=== PATIENT | female | born 1950 | race Caucasian/White ===

== ENCOUNTER 2019-08-13 02:00 | Day surgery (SDC) | payer MEDICARE, OTHER, SELFPAY ==
[2019-08-07 10:43] VITALS: BMI 31.0
--- NOTE | 2019-08-13 10:12 | WPDANESEPPF ---
Anes - Initial Pre Proc Eval Procedure: Operation Date: 08/13/19 14:00 Proposed Procedures p Screening Colonoscopy - Jam Morales MD Date/Time: 08/13/19 10:12 Surgeon: Jam Morales MD Pre Op Diagnosis: Neoplasm Screening Patient Data Age: 69 Gender: F Height: 5 ft 4 in Weight: 82 kg Allergies Allergy/AdvReac Type Severity Reaction Status Date / Time Sulfa (Sulfonamide Allergy Intermediate Rash Verified 08/07/19 10:55 Antibiotics) lisinopril AdvReac Intermediate Cough Verified 08/07/19 10:55 Home Medications Medication Instructions Recorded Confirmed Type calcium carb 300 mg-D3 800 1 tablet PO DAILY 05/27/19 08/07/19 History unit-mag ox 25 mg-[employer] 0.5 mg-siomara-Zn tablet irbesartan 300 mg tablet 300 mg PO DAILY 05/27/19 08/07/19 History multivit with 1 tablet PO DAILY 05/27/19 08/07/19 History dlcvevvb-ghkm-RX-lutein 8 mg iron-400 mcg-300 mcg tablet amlodipine 10 mg tablet 10 mg PO DAILY #90 tablet 07/24/19 08/07/19 Rx cyclosporine [Restasis] OPHTHALMIC (EYE) 08/07/19 History peg 3350-electrolytes 236 240 ml PO Q10M #4000 ml 08/11/19 Rx gram-22.74 gram-6.74 gram-5.86 gram solution Patient hx anesthesia problems: none Family hx anesthesia problems: none PMFSH Past Medical History Medical History Cataract Essential (primary) hypertension IFG (impaired fasting glucose) Rosacea Surgical History Surgical History H/O melanoma excision Social History Social History Gender identity (if verbalized by the patient): Female Anes - Eval Final PreProcedure Day of Procedure 08/13/19 10:12 Patient weight: obese Heart: regular rate and rhythm Lungs: clear to auscultation Airway: Mallampati scale class II Neurological: alert and oriented Last oral intake: >/= 8 hours ASA classification: II Emergent: no Anesthetic plan: proceed Anesthesia type and monitoring: general GIVS and standard monitoring Informed Consent: The patient's anesthetic plan and its attendant risks and benefits were discussed with the patient/family/POA. Questions were solicited and answers provided to the satisfaction of the patient/family/POA.
[2019-08-13 10:16] VITALS: BP 117/74; PULSE 73; RESP 16; TEMP 36.8; O2SAT 96
[2019-08-13] MEDS: LACTATED RINGERS 1,000 ML 150 ML IV CONT (10:39)
--- NOTE | 2019-08-13 11:21 | PM.HPGS ---
History of Present Illness History of Present Illness Consent: Risks, benefits, and alternatives have been discussed and questions answered. Patient agrees to proceed with procedure. Chief complaint: Neoplasm Screening Narrative: Meeta Blackmon is a 69 year old female with history of polyps, she is due to have another colonoscopy Review of Systems Constitutional: Constitutional: Denies headache(s) and Denies weakness Eyes: Eyes: Denies blurry vision ENT: Reports Normal hearing present, Denies headache(s) and Denies neck pain Cardiovascular: Cardiovascular: Denies chest pain and Denies dyspnea Respiratory: Respiratory: Denies dyspnea Gastrointestinal: Gastrointestinal: Reports no additional gastrointestinal complaints Genitourinary: Genitourinary: Denies dysuria Musculoskeletal: Musculoskeletal: Denies neck pain Integumentary/Breasts: Skin/Breast: Denies dry skin Neurologic: Reports Normal hearing present, Denies headache(s) and Denies weakness Psychiatric: Psychiatric: Denies anxiety Endocrine: Endocrine: Denies change in body appearance Hematologic/Lymphatic: Hematologic/Lymphatic: Denies easy bleeding Allergic/Immunologic: Allergic/Immunologic: Denies urticaria PMFSH Past Medical History Medical History Cataract Essential (primary) hypertension IFG (impaired fasting glucose) Rosacea Surgical History Surgical History H/O melanoma excision Social History Social History Gender identity (if verbalized by the patient): Female Meds Home Medications and Allergies Home Medications Medication Instructions Recorded Confirmed Type calcium carb 300 mg-D3 800 1 tablet PO DAILY 05/27/19 08/07/19 History unit-mag ox 25 mg-cops 0.5 mg-siomara-Zn tablet irbesartan 300 mg tablet 300 mg PO DAILY 05/27/19 08/07/19 History multivit with 1 tablet PO DAILY 05/27/19 08/07/19 History fzepznlz-djqq-NL-lutein 8 mg iron-400 mcg-300 mcg tablet amlodipine 10 mg tablet 10 mg PO DAILY #90 tablet 07/24/19 08/07/19 Rx cyclosporine [Restasis] OPHTHALMIC (EYE) 08/07/19 History peg 3350-electrolytes 236 240 ml PO Q10M #4000 ml 08/11/19 Rx gram-22.74 gram-6.74 gram-5.86 gram solution Allergies Allergy/AdvReac Type Severity Reaction Status Date / Time Sulfa (Sulfonamide Allergy Intermediate Rash Verified 08/13/19 10:15 Antibiotics) lisinopril AdvReac Intermediate Cough Verified 08/07/19 10:55 Vital Signs Vital Signs - 24 hr 08/13/19 10:16 Temperature 98.3 F Pulse Rate 73 Respiratory Rate 16 Blood Pressure 117/74 Pulse Oximetry 96 Exam Const: General: comfortable and no acute distress HENMT: General nose exam: Normal nares present Eyes: General: appearance normal, both eyes and all related structures Neck: Neck: no JVD Resp: Auscultation: clear to auscultation bilaterally Cardio: Rate: regular rate Rhythm: regular rhythm GI: Inspection: non-distended GI Palp: Yes Soft to palpation Skin: General skin exam: normal color Neuro: General: gait normal Speech: normal speech Extrem: General: normal to inspection Psych: Mental Status: mental status grossly normal Assessment and Plan Assessment and plan (1) Colon polyp: Code(s): K63.5 - Polyp of colon Status: Acute Assessment and Plan: will proceed with colonoscopy (2) Essential (primary) hypertension: Code(s): I10 - Essential (primary) hypertension Status: Chronic
[2019-08-13 11:45] VITALS: BP 92/54; PULSE 71; RESP 20; O2SAT 98
[2019-08-13 11:55] VITALS: BP 94/54; PULSE 67; RESP 17; O2SAT 98
[2019-08-13 12:05] VITALS: BP 98/59; PULSE 66; RESP 13; O2SAT 100
== END 2019-08-13 12:18 | disposition home or self-care (01) ==
PROVIDERS: PCP Family Medicine; Visit Provider Internal Medicine Gastroenterology
PROC: 0DJD8ZZ Inspection of Lower Intestinal Tract, Via Natural or Artificial Opening Endoscopic (ICD-10-PCS; CPT 45378; principal; 2019-08-13 14:00)
DX: Z12.11 Encounter for screening for malignant neoplasm of colon (principal); K57.30 Diverticulosis of large intestine without perforation or abscess without bleeding; K64.8 Other hemorrhoids; Z86.010 Personal history of colon polyps; I10 Essential (primary) hypertension; H26.9 Unspecified cataract; E66.9 Obesity, unspecified; Z68.31 Body mass index [BMI] 31.0-31.9, adult
CPT/HCPCS: G0105; J2704; J7120

== ENCOUNTER 2020-07-03 08:04 | Outpatient (CLI) | payer MEDICARE, OTHER, SELFPAY ==
--- NOTE | ~2020-07-03 | MM_ITS ---
EXAMINATION: MM screening romeo BI w shanti HISTORY: Screening mammogram TECHNIQUE: Craniocaudal and mediolateral oblique 3-D tomosynthesis images were obtained and synthetic 2-D images were generated. CAD analysis was submitted and interpreted. COMPARISON: 06/03/2019, 03/2018 bilateral digital screening mammogram examinations BREAST PARENCHYMAL COMPOSITION: There are scattered areas of fibroglandular density. FINDINGS: There is no evidence of suspicious mass, calcification, or architectural distortion to sugg est malignancy in either breast. There has been no suspicious interval change. IMPRESSION: 1. No mammographic evidence of malignancy. 2. Recommend routine screening mammography in one year. BI-RADS Category 1: Negative Reviewed, dictated and finalized at location A. ORNE ELECTRONICS ANALYST
== END 2020-07-03 08:05 | disposition home or self-care (01) ==
LOC: ANHIMG 08:11
PROVIDERS: PCP Family Medicine; Visit Provider Obstetrics & Gynecology
DX: Z12.31 Encounter for screening mammogram for malignant neoplasm of breast (principal)
CPT/HCPCS: 77063; 77067

== ENCOUNTER 2021-03-08 08:23 | Outpatient (CLI) | payer MEDICARE, OTHER, SELFPAY ==
--- NOTE | ~2021-03-08 | XR_ITS ---
EXAMINATION: XR chest 2V EXAM DATE: 03/08/2021 09:37 INDICATION: Right forearm melanoma. TECHNIQUE: Frontal and lateral projections of the chest obtained and reviewed. There is no prior christiana dy for comparison. FINDINGS: Large hiatal hernia. Cardiomediastinal silhouette is normal. No confluent consolidation, pn eumothorax or pleural effusion suspected. There are no osseous abnormalities identified. Calcified ri ght paratracheal granulomas. IMPRESSION: 1. Large hiatal hernia. 2. Clear lungs. Reviewed, dictated and finalized at location A.
[2021-03-08 09:45] LABS: Basophils Absolute Auto 0.1 K/mm3 (0.0-0.1); Basophils Percent Auto 1.1 % (0.2-1.2); Eosinophils Absolute Auto 0.3 K/mm3 (0-0.3); Hematocrit 44.9 % (37.0-47.0); Hemoglobin 14.4 g/dL (12.0-15.0); Immature Granulocyte Absolute 0.03 K/mm3 (0.00-0.031); Immature Granulocyte Percent A 0.7 % (0-0.5); Lymphocytes Absolute Auto 1.64 K/mm3 (0.9-3.2); Lymphocytes Percent Auto 36.9 % (18.3-44.2); Mean Corpuscular HGB Conc 32.1 g/dl (32-36); Mean Corpuscular Hemoglobin 25.3 pg (26-34); Mean Corpuscular Volume 78.8 fl (80-100); Mean Platelet Volume 10.9 fl (7.4-10.4); Monocytes Absolute Auto 0.6 K/mm3 (0.1-0.6); Monocytes Percent Auto 13.3 % (2.6-8.5); Neutrophils Absolute Auto 1.8 K/mm3 (1.3-6.7); Platelet Count Result 179 k/mm3 (150-375); Red Cell Distribution Width 14.8 % (11.5-14.5); White Blood Count 4.5 K/mm3 (4.5-10.0)
[2021-03-08 11:06] LABS: Alanine Aminotransferase 19 U/L (4-35); Albumin Level 4.5 g/dL (3.5-5.1); Alkaline Phosphatase 71 U/L (38-126); Anion Gap 12 mmol/L (8-16); Aspartate Amino Transferase 28 U/L (14-36); Bilirubin,Total 0.6 mg/dL (0.2-1.3); Blood Urea Nitrogen 14 mg/dL (7-17); Calcium 9.5 mg/dL (8.4-10.2); Carbon Dioxide 24 mmol/L (22-30); Chloride 98 mmol/L (98-107); Cholesterol 176 mg/dL (0-200); Estimated Glomerular Filt Rate > 60; Glucose 93 mg/dL (65-110); HDL Direct 82 mg/dL; Potassium 3.8 mmol/L (3.4-5.0); Sodium 134 mmol/L (137-145); Triglycerides 54 mg/dL (<150)
[2021-03-08 11:13] LABS: Hemoglobin A1C 5.5 % (<5.7)
[2021-03-08 11:17] LABS: LDL Cholesterol Direct 72 mg/dL
== END 2021-03-08 08:24 | disposition home or self-care (01) ==
PROVIDERS: PCP Family Medicine; Referring Provider Surgery; Visit Provider Nurse Practitioner Family
DX: E78.2 Mixed hyperlipidemia (principal); R73.01 Impaired fasting glucose; I10 Essential (primary) hypertension; K44.9 Diaphragmatic hernia without obstruction or gangrene; C43.61 Malignant melanoma of right upper limb, including shoulder
CPT/HCPCS: 36415; 71046; 80053; 80061; 83036; 84443; 85025

== ENCOUNTER 2021-04-11 14:22 | Outpatient (CLI) | payer MEDICARE, OTHER, SELFPAY ==
[2021-04-11 15:24] LABS: Alanine Aminotransferase 20 U/L (4-35); Albumin Level 4.6 g/dL (3.5-5.1); Alkaline Phosphatase 76 U/L (38-126); Anion Gap 8 mmol/L (8-16); Aspartate Amino Transferase 24 U/L (14-36); Bilirubin,Total 0.6 mg/dL (0.2-1.3); Blood Urea Nitrogen 16 mg/dL (7-17); Calcium 9.4 mg/dL (8.4-10.2); Carbon Dioxide 27 mmol/L (22-30); Chloride 101 mmol/L (98-107); Estimated Glomerular Filt Rate > 60; Glucose 91 mg/dL (65-110); Lactate Dehydrogenase 366 U/L (313-618); Potassium 4.2 mmol/L (3.4-5.0); Sodium 136 mmol/L (137-145)
[2021-04-11 15:26] LABS: Basophils Percent Auto 0.7 % (0.2-1.2); Eosinophils Absolute Auto 0.3 K/mm3 (0-0.3); Eosinophils Percent Auto 5.6 % (0-4.4); Hematocrit 42.7 % (37.0-47.0); Immature Granulocyte Absolute 0.04 K/mm3 (0.00-0.031); Immature Granulocyte Percent A 0.7 % (0-0.5); Lymphocytes Absolute Auto 1.95 K/mm3 (0.9-3.2); Lymphocytes Percent Auto 36.2 % (18.3-44.2); Mean Corpuscular HGB Conc 32.8 g/dl (32-36); Mean Corpuscular Hemoglobin 26.3 pg (26-34); Mean Corpuscular Volume 80.3 fl (80-100); Mean Platelet Volume 10.4 fl (7.4-10.4); Monocytes Absolute Auto 0.5 K/mm3 (0.1-0.6); Monocytes Percent Auto 9.9 % (2.6-8.5); Neutrophils Absolute Auto 2.5 K/mm3 (1.3-6.7); Neutrophils Percent Auto 46.9 % (45.5-73.1); Platelet Count Result 192 k/mm3 (150-375); Red Blood Count 5.32 M/mm3 (4.2-5.4); Red Cell Distribution Width 15.1 % (11.5-14.5); White Blood Count 5.4 K/mm3 (4.5-10.0)
[2021-04-11 15:53] LABS: Iron 107 ug/dL (37-170)
[2021-04-11 16:02] LABS: Percent Iron Saturation 31 % (20-50)
[2021-04-17 12:43] LABS: Hematocrit 42.4 % (35.0-45.0); Hemoglobin 13.9 g/dL (11.7-15.5); MCV 79.4 fL (80.0-100.0); RDW 15.7 % (11.0-15.0); Red Blood Cell Count 5.34 Mill/uL (3.80-5.10)
== END 2021-04-11 14:23 | disposition home or self-care (01) ==
LOC: ANHLAB 14:29
PROVIDERS: PCP Family Medicine; Visit Provider Internal Medicine Hematology & Oncology
DX: R59.1 Generalized enlarged lymph nodes (principal); R71.8 Other abnormality of red blood cells
CPT/HCPCS: 36415; 80053; 82728; 83021; 83540; 83550; 83615; 85025; 88184; 88185

== ENCOUNTER 2021-05-09 08:06 | Outpatient (CLI) | payer MEDICARE, OTHER, SELFPAY ==
--- NOTE | ~2021-05-09 | CT_ITS ---
EXAMINATION: CT soft tissue neck chest w EXAM DATE: 05/09/2021 09:06 INDICATION: Lymphadenopathy Lab Work , Yeyo Neck Swelling Per doctor. History of right forearm melanom a. TECHNIQUE: Spiral CT of the neck and chest was performed following intravenous injection of 75 mL Omn ipaque 350. Axial, coronal and sagittal images of the neck were reviewed. Axial, coronal and sagitt al images of the chest were reviewed. Coronal maximum intensity pixel images of chest reviewed. The dose-length product (DLP) for this examination was 535.10 mGy-cm. The exposure was tailored accordi ng to patient size (auto mA exposure control), and iterative reconstruction (ASIR) was used as additi onal dose reduction technique. There is no prior study for comparison. FINDINGS: NECK: The thyroid gland is unremarkable. The submandibular and parotid glands are symmetric. Ther e is no cervical lymphadenopathy. There are no masses identified. The airway is unremarkable. P arapharyngeal and pre-glottic fat planes are preserved. Mild left carotid bulb arterial sclerosis w ithout stenosis. There is right neck chest junction pathologically enlarged lymph node which measures 1.2 x 1.7 cm. This is the largest cervical lymph node identified. The orbits are unremarkable. Vi sualized sinuses and mastoid air cells are well aerated. There is cervical spondylosis. CHEST: There are no pleural or pericardial effusions. Tracheobronchial tree is patent. There ar e several enlarged right axillary lymph nodes, measuring up to 1.0 x 1.0 x 2.0 cm. There is no medias tinal or hilar lymphadenopathy. No central pulmonary emboli. There is large gastroesophageal hiatal h ernia, stomach is essentially intrathoracic in location, as well as the splenic flexure of the colon. There is bilateral lower lobe adjacent subsegmental compressive atelectasis. There is no pneumothora x. Mild cardiomegaly. Mildly dilated aortic root at 4.0 cm. No evidence of coronary arterial calci fication. There is thoracic spondylosis without osteoblastic or osteolytic lesions identified. IMPRESSION: 1. Pathologically enlarged lymph nodes in the right axilla, right supraclavicular/lower cervical reg ions. Differential diagnosis includes metastatic disease, lymphoma, granulomatous process. The right lower cervical/supraclavicular node location would be amenable to percutaneous biopsy. 2. Large hernia containing stomach and splenic flexure of colon. 3. Basilar segmental compressive atelectasis. Reviewed, dictated and finalized at location B. IMPRESSION: 1. Pathologically enlarged lymph nodes in the right axilla, right supraclavicu lar/lower cervical regions. Differential diagnosis includes metastatic disease, lymphoma, granulomatous process. The right lower cervical/supraclavicular node location would be amenable to percutaneous biopsy. 2. Large hernia containing stomach and splenic flexure of colon. 3. Basilar segmental compressive atelectasis.
== END 2021-05-09 08:07 | disposition home or self-care (01) ==
LOC: ANHIMG 08:22
PROVIDERS: PCP Family Medicine; Visit Provider Internal Medicine Hematology & Oncology
DX: R59.1 Generalized enlarged lymph nodes (principal); K44.9 Diaphragmatic hernia without obstruction or gangrene; R91.8 Other nonspecific abnormal finding of lung field
CPT/HCPCS: 70491; 71260; Q9967

== ENCOUNTER 2021-06-21 11:25 | Outpatient (CLI) | payer MEDICARE, OTHER, SELFPAY ==
[2021-06-16 10:26] VITALS: BMI 23.9
--- NOTE | 2021-06-16 10:58 | PC.NURSE ---
Report to the Outpatient Waiting Room, entrance under the green pavilion located off [facility], at time 1130 on date 06/21/21. OR Time: 1330. - You and your visitor will be asked a series of questions to screen for COVID 19 for your protection. - A mask is required within the hospital. - Only one visitor is allowed at this time. Patient visitors will be guided where to wait when not with patient. Preoperative COVID Testing Requirements: No COVID Test needed if: (proof is required; if not received patient will have Rapid Test prior to entry) - Patient has received COVID Vaccine at least 14 days prior to procedure date or - Patient has positive COVID test result within last 90 days of surgery date. COVID Test needed if above criteria is not met If not COVID vaccinated a COVID test must be conducted within 72 hours of surgery and patient is asked to isolate self from time of testing until procedure. You will go to the [facility] for your COVID testing. The [facility] is located at the corner of [address] [facility]. You will only be called if COVID results are positive and your surgeon may reschedule your elective surgery date. - No food OR DRINK FOR 6 HOURS PRIOR TO PROCEDURE Take the following medications with a SIP of water the morning of surgery: PRIOR TO 0730 Medications to discontinue per physician: N/A Date to take last dose: N/A Please no make-up, nail sami, hairspray, perfume, deodorant, or body powder the day of surgery. No jewelry (including any body piercings) or valuables the day of surgery, leave them at home. Please take a shower or bath the night before, or the morning of, surgery with an antibacterial soap. Wear comfortable, loose fitting clothing. Children are encouraged to wear pajamas. - Jewelry must be removed prior to entering the operating room. Rings and piercings that are not removed may be cut off. - The hospital will not accept responsibility for valuables. - Please leave all valuables, including medications, at home the day of surgery. If you are going home after surgery, a licensed charter coach driver must drive you home. - NO public transportation without another adult. - We recommend that an adult stay with you for 24 hours following discharge. - We also recommend that you do not drive, make important decision, drink alcoholic beverages, or take any drugs that were not prescribed by your health care provider for at least 24 hours after your discharge time. Follow any additional instructions given to you from your surgeon. Telephone instructions given to GENTRY DOMINIQUE and asked if any additional questions and then verbalized understanding. Patient advised to call surgeon office or pre surgery nurse liaison [phone] if any additional questions.
--- NOTE | ~2021-06-21 | US_ITS ---
EXAMINATION: US biopsy lymph node DATE: 06/21/2021 14:06 INDICATION: Right supraclavicular lymphadenopathy. TECHNIQUE: The procedure including the risks, benefits, and alternatives was discussed with the patie nt. Risks discussed included bleeding and infection. The patient understood the risks and agreed to p roceed. The skin overlying the right supraclavicular region was prepped and draped in usual sterile f ashion. Anesthetic was administered with 1% lidocaine subcutaneously. An 18 gauge core biopsy needl e was then used to obtain 6 core biopsy specimens under continuous sonographic guidance. The entry si te was cleaned and dressed. There were no immediate complications. FINDINGS: Ultrasound images demonstrate the needle in a 1.9 x 1.3 cm right supraclavicular lymph node . IMPRESSION: 1. Ultrasound-guided core needle biopsy of a right supraclavicular lymph node. Reviewed, dictated and finalized at location A. NISTRATIVE SUPPORT CLERK
[2021-06-21 12:15] VITALS: BP 151/80; PULSE 71; RESP 16; TEMP 36.9; O2SAT 98
[2021-06-21 12:19] LABS: Mean Platelet Volume 10.1 fl (7.4-10.4); Platelet Count Result 186 k/mm3 (150-375)
[2021-06-21 12:28] LABS: INR 1.1; Prothrombin Time 13.7 Seconds (11.1-14.7)
== END 2021-06-21 11:26 | disposition home or self-care (01) ==
PROVIDERS: PCP Family Medicine; Visit Provider Radiology Diagnostic Radiology
PROC: (CPT 76942; principal; 2021-06-21 13:30)
DX: R59.0 Localized enlarged lymph nodes (principal)
CPT/HCPCS: 36415; 38505; 76942; 85049; 85610; 88184; 88185; 88305

== ENCOUNTER 2021-07-14 09:08 | Outpatient (CLI) | payer MEDICARE, OTHER, SELFPAY ==
--- NOTE | ~2021-07-14 | MM_ITS ---
EXAMINATION: MM screening romeo BI w shanti HISTORY: Screening TECHNIQUE: Craniocaudal and mediolateral oblique 3-D tomosynthesis images were obtained and synthetic 2-D images were generated. CAD analysis was submitted and interpreted. COMPARISON: Comparison to multiple prior studies sequentially, with oldest reviewed study dated 10/2017. BREAST PARENCHYMAL COMPOSITION: The breasts are heterogeneously dense, which may obscure small masses . FINDINGS: There is developing subareolar asymmetry of the right breast. Left breast is stable withou t evidence for malignancy. IMPRESSION: 1. Developing right breast asymmetry. 2. Additional mammographic views and possible breast ultrasound are recommended. BI-RADS Category 0: Incomplete: Needs additional imaging evaluation. Reviewed, dictated and finalized at location A. TRICAL LINESWORKER IMPRESSION: 1. Developing right breast asymmetry. 2. Additional mammographic views and possible breast ultrasound are recommended . BI-RADS Category 0: Incomplete: Needs additional imaging evaluation.
== END 2021-07-14 09:09 | disposition home or self-care (01) ==
PROVIDERS: PCP Family Medicine; Visit Provider Obstetrics & Gynecology
DX: Z12.31 Encounter for screening mammogram for malignant neoplasm of breast (principal); R92.8 Other abnormal and inconclusive findings on diagnostic imaging of breast
CPT/HCPCS: 77063; 77067

== ENCOUNTER 2021-08-04 12:44 | Outpatient (CLI) | payer MEDICARE, OTHER, SELFPAY ==
--- NOTE | ~2021-08-04 | MMUS_ITS ---
EXAMINATION: MM diagnostic romeo RT w shanti, US breast RT limited HISTORY: Follow-up right breast asymmetry TECHNIQUE: Additional 3-D tomosynthesis images of the right breast were performed and synthetic 2-D i mages were generated. CAD analysis was submitted and interpreted. High resolution Limited right breas t ultrasound was performed. COMPARISON: 07/14/2021 BREAST PARENCHYMAL COMPOSITION: The breasts are heterogenously dense, which may obscure small masses. FINDINGS: MAMMOGRAPHIC FINDINGS: There is focal asymmetry in the the subareolar location of the right breast. No discrete mass or arch itectural distortion. There is no suspicious clustered microcalcifications. ULTRASOUND: Limited right breast ultrasound: Mildly prominent ducts correspond to the asymmetry seen on mammograp hy. No discrete mass is identified. IMPRESSION: 1. No evidence for malignancy in the right breast. 2. Routine yearly screening mammogram and regular clinical breast examination are recommended. BI-RADS Category 1: Negative Reviewed, dictated and finalized at location A. Y STITCHER IMPRESSION: 1. No evidence for malignancy in the right breast. 2. Routine yearly screening mammogram and regular clinical breast examination a re recommended. BI-RADS Category 1: Negative
== END 2021-08-04 12:45 | disposition home or self-care (01) ==
LOC: ANHIMG 12:45
PROVIDERS: PCP Family Medicine; Visit Provider Obstetrics & Gynecology
DX: R92.8 Other abnormal and inconclusive findings on diagnostic imaging of breast (principal)
CPT/HCPCS: 76642; 77061; 77065; G0279

== ENCOUNTER 2021-09-06 08:33 | Outpatient (CLI) | payer MEDICARE, OTHER, SELFPAY ==
[2021-09-06 09:25] LABS: Basophils Absolute Auto 0.1 K/mm3 (0.0-0.1); Basophils Percent Auto 1.2 % (0.2-1.2); Eosinophils Absolute Auto 0.5 K/mm3 (0-0.3); Eosinophils Percent Auto 11.7 % (0-4.4); Hematocrit 43.6 % (37.0-47.0); Hemoglobin 14.4 g/dL (12.0-15.0); Immature Granulocyte Absolute 0.02 K/mm3 (0.00-0.031); Immature Granulocyte Percent A 0.5 % (0-0.5); Lymphocytes Absolute Auto 1.96 K/mm3 (0.9-3.2); Mean Corpuscular Hemoglobin 26.5 pg (26-34); Mean Corpuscular Volume 80.1 fl (80-100); Mean Platelet Volume 10.5 fl (7.4-10.4); Monocytes Absolute Auto 0.6 K/mm3 (0.1-0.6); Monocytes Percent Auto 13.8 % (2.6-8.5); Neutrophils Absolute Auto 1.1 K/mm3 (1.3-6.7); Neutrophils Percent Auto 26.8 % (45.5-73.1); Platelet Count Result 167 k/mm3 (150-375); Red Blood Count 5.44 M/mm3 (4.2-5.4); Red Cell Distribution Width 15.2 % (11.5-14.5); White Blood Count 4.3 K/mm3 (4.5-10.0)
[2021-09-06 09:40] LABS: Alanine Aminotransferase 18 U/L (4-35); Albumin Level 4.3 g/dL (3.5-5.1); Alkaline Phosphatase 76 U/L (38-126); Anion Gap 5 mmol/L (8-16); Aspartate Amino Transferase 26 U/L (14-36); Bilirubin,Total 0.7 mg/dL (0.2-1.3); Blood Urea Nitrogen 13 mg/dL (7-17); Calcium 9.4 mg/dL (8.4-10.2); Carbon Dioxide 28 mmol/L (22-30); Chloride 100 mmol/L (98-107); Estimated Glomerular Filt Rate > 60; Glucose 93 mg/dL (65-110); Potassium 3.9 mmol/L (3.4-5.0); Sodium 133 mmol/L (137-145)
== END 2021-09-06 08:34 | disposition home or self-care (01) ==
LOC: ANHLAB 08:35
PROVIDERS: PCP Family Medicine; Visit Provider Nurse Practitioner Family
DX: R71.8 Other abnormality of red blood cells (principal); I10 Essential (primary) hypertension
CPT/HCPCS: 36415; 80053; 85025

== ENCOUNTER 2022-03-08 08:27 | Outpatient (CLI) | payer MEDICARE, OTHER, SELFPAY ==
[2022-03-08 09:16] LABS: Basophils Absolute Auto 0.1 K/mm3 (0.0-0.1); Eosinophils Absolute Auto 0.4 K/mm3 (0-0.3); Eosinophils Percent Auto 8.3 % (0-4.4); Hematocrit 45.3 % (37.0-47.0); Hemoglobin 14.6 g/dL (12.0-15.0); Immature Granulocyte Absolute 0.02 K/mm3 (0.00-0.031); Immature Granulocyte Percent A 0.4 % (0-0.5); Lymphocytes Absolute Auto 1.62 K/mm3 (0.9-3.2); Lymphocytes Percent Auto 33.7 % (18.3-44.2); Mean Corpuscular HGB Conc 32.2 g/dl (32-36); Mean Corpuscular Hemoglobin 25.7 pg (26-34); Mean Corpuscular Volume 79.9 fl (80-100); Mean Platelet Volume 10.5 fl (7.4-10.4); Monocytes Absolute Auto 0.7 K/mm3 (0.1-0.6); Monocytes Percent Auto 14.6 % (2.6-8.5); Platelet Count Result 175 k/mm3 (150-375); Red Blood Count 5.67 M/mm3 (4.2-5.4); Red Cell Distribution Width 15.4 % (11.5-14.5); White Blood Count 4.8 K/mm3 (4.5-10.0)
[2022-03-08 09:38] LABS: Alanine Aminotransferase 24 U/L (6-35); Albumin Level 4.7 g/dL (3.5-5.1); Alkaline Phosphatase 82 U/L (38-126); Anion Gap 9 mmol/L (8-16); Aspartate Amino Transferase 25 U/L (14-36); Bilirubin,Total 0.7 mg/dL (0.2-1.3); Blood Urea Nitrogen 14 mg/dL (7-17); Calcium 9.2 mg/dL (8.4-10.2); Carbon Dioxide 28 mmol/L (22-30); Chloride 97 mmol/L (98-107); Cholesterol 173 mg/dL (0-200); Estimated Glomerular Filt Rate > 60; Glucose 94 mg/dL (65-110); HDL Direct 78 mg/dL; Sodium 134 mmol/L (137-145); Triglycerides 59 mg/dL (<150)
[2022-03-08 09:44] LABS: Appearance Urine Clear (Clear); Bilirubin Urine Negative (Negative); Color Urine Yellow (Yellow); Glucose Urine UA Negative (Negative); Ketones Urine Negative (Negative); Leukocyte Esterase Ur 1+ LEU/UL (NEGATIVE); Nitrate Urine Negative (Negative); Protein Urine Negative (Negative); Specific Grav Ur 1.015 (1.001-1.035); Urobilinogen Urine 0.2 mg/dL (<2.0)
[2022-03-08 09:46] LABS: Add Urine Microscopic? YES; Blood Urine Trace-Intact (Negative)
[2022-03-08 09:49] LABS: LDL Cholesterol Direct 62 mg/dL
[2022-03-08 09:50] LABS: Squamous Epithelial Cell Urine Rare /hpf (Few); WBC Urine 0-3 /hpf (0-3)
[2022-03-08 09:59] LABS: Hemoglobin A1C 5.4 % (<5.7)
[2022-03-08 10:15] LABS: Vitamin D 25 Hydroxy 39.3 ng/mL
== END 2022-03-08 08:28 | disposition home or self-care (01) ==
LOC: ANHLAB 08:31
PROVIDERS: PCP Family Medicine; Visit Provider Nurse Practitioner Family
DX: N39.0 Urinary tract infection, site not specified (principal); E55.9 Vitamin D deficiency, unspecified; I10 Essential (primary) hypertension; R73.01 Impaired fasting glucose; R79.89 Other specified abnormal findings of blood chemistry; E78.2 Mixed hyperlipidemia
CPT/HCPCS: 36415; 80053; 80061; 81001; 82306; 83036; 84443; 85025

== ENCOUNTER 2022-03-19 17:55 | Emergency (ER) | payer MEDICARE, OTHER, SELFPAY ==
[2022-03-19 18:06] VITALS: BP 151/89; PULSE 87; RESP 16; TEMP 37.4; O2SAT 98
--- NOTE | 2022-03-19 18:31 | ED.GENADULT ---
HPI - General Adult General Chief complaint: Skin/Abscess/Foreign Body Stated complaint: wasp sting on left hand Source: patient Mode of arrival: ambulatory Limitations: no limitations History of Present Illness HPI narrative: Patient presents for evaluation of swelling, pain and redness to the left hand and arm since yesterday. She indicates she experienced 2 wasp stings, one to the third digit of the left hand and the other to the left forearm. She states she is allergic to wasp stings and has had similar response in the past. No difficulty breathing or swallowing. She took 2 doses of Benadryl, each 50 mg, yesterday and another dose of 50 mg today. The first dose yesterday seem to help reduce her swelling. She is right-hand dominant. She is not diabetic. No purulence from the affected area. She is under the care of hematology for surveillance of elevated red blood cell count. She indicates she had testing to check for underlying clotting disorders and that testing was negative. No additional complaints or concerns. Related Data Home Medications Medication Instructions Recorded Confirmed calcium carb 300 mg-D3 800 1 tablet PO DAILY 05/27/19 06/16/21 unit-mag ox 25 mg-engraver copperplate 0.5 mg-siomara-Zn tablet (Caltrate + D3 Plus Minerals) multivit with 1 tablet PO DAILY 05/27/19 06/16/21 jmtovllr-epxk-OX-lutein 8 mg iron-400 mcg-300 mcg tablet (Centrum Silver Women) cyclosporine 0.05 % eye drops in a 1 drp ophthalmic (eye) DAILY 08/07/19 06/16/21 dropperette (Restasis) Allergies Allergy/AdvReac Type Severity Reaction Status Date / Time Sulfa (Sulfonamide Allergy Intermediate Rash Verified 03/17/22 09:02 Antibiotics) lisinopril AdvReac Intermediate Cough Verified 03/17/22 09:02 [facility] Past Medical History Medical History Cataract Colon polyp Essential (primary) hypertension IFG (impaired fasting glucose) Melanoma in situ Rosacea Surgical History Surgical History H/O melanoma excision Family History Family History Mother Hypertension Cerebrovascular accident Family history of malignant neoplasm of breast in first degree relative Father Malignant neoplasm of prostate Family history of lung cancer Social History Social History Smoking status: Former smoker Tobacco type: cigarettes Smoking end date: 07/16/81 Additional smoking assessment comments: IN COLLEGE FOR A SHORT PERIOD OF TIME Alcohol intake: current Alcohol use details: 1-2/MONTH Substance use: never Substance use type: does not use Gender identity (if verbalized by the patient): Female Spiritual care concerns: No Exam Narrative: GENERAL: Well-appearing, well-nourished, and in no acute distress. HEAD: Normocephalic, atraumatic. EYES: PERRLA and EOMI. ENT: Nares clear, no rhinorrhea or epistaxis. Mucous membranes moist. Oropharynx without tonsillar hypertrophy exudate or other lesions. Bilateral TMs pearly brewer nonbulging NECK: Supple. No adenopathy or masses. No carotid bruits or JVD CHEST: Clear to auscultation. No respiratory distress. No wheezes rales or rhonchi HEART: Regular rate and rhythm. No murmur heard. Normal peripheral pulses. ABDOMEN: Soft, nontender, nondistended, normal active bowel sounds. EXTREMITIES: Normal range of motion. No edema. SKIN: Pinpoint puncture chelsi noted to the third digit of the left hand. No other pinpoint puncture chelsi noted to the left forearm. There is erythema and swelling noted throughout the left hand extending into the midsection of the left forearm. Warm, dry, no rash. NEURO: No focal deficits. Alert and oriented x3. PSYCH: Normal mood and affect. Course Course Emergency Course: This is a 71-year-old female that pres
[2022-03-19] MEDS: diphenhydrAMINE HCl CAP 25 MG CAPSULE 50 MG PO (18:32)
[2022-03-19] MEDS: methylPREDNISolone SOD SUCC 125 MG VIAL IM (18:35)
== END 2022-03-19 19:19 | disposition home or self-care (01) ==
PROVIDERS: Emergency Provider Nurse Practitioner; PCP Family Medicine
DX: T63.461A Toxic effect of venom of wasps, accidental (unintentional), initial encounter (principal); I10 Essential (primary) hypertension; Z85.820 Personal history of malignant melanoma of skin; Z86.010 Personal history of colon polyps; Z87.891 Personal history of nicotine dependence
CPT/HCPCS: 96372; 99213; A9270; G0463; J2930

== ENCOUNTER → 2022-09-06 13:23 | Outpatient (CLI) | payer MEDICARE, OTHER, SELFPAY ==
--- NOTE | ~2022-09-06 | MM_ITS ---
EXAMINATION: MM screening romeo BI w shanti HISTORY: Screening mammogram TECHNIQUE: Craniocaudal and mediolateral oblique 3-D tomosynthesis images were obtained and synthetic 2-D images were generated. CAD analysis was submitted and interpreted. COMPARISON: 08/04/2021 diagnostic right mammogram and limited right breast ultrasound examination 07/14/2021, 07/03/2020, 06/03/2019, 03/2018 bilateral screening mammogram examinations BREAST PARENCHYMAL COMPOSITION: The breasts are heterogeneously dense, which may obscure small masses . FINDINGS: There is no evidence of suspicious mass, calcification, or architectural distortion to sugg est malignancy in either breast. There has been no suspicious interval change. IMPRESSION: 1. No mammographic evidence of malignancy. 2. Recommend routine screening mammography in one year. BI-RADS Category 1: Negative Reviewed, dictated and finalized at location A. [place] CENTER RECEPTIONIST
== END ==
PROVIDERS: PCP Family Medicine; Visit Provider Obstetrics & Gynecology
DX: Z12.31 Encounter for screening mammogram for malignant neoplasm of breast (principal)
CPT/HCPCS: 77063; 77067

== ENCOUNTER 2022-09-14 07:43 | Outpatient (CLI) | payer MEDICARE, OTHER, SELFPAY ==
[2022-09-14 08:25] LABS: Alanine Aminotransferase 22 U/L (6-35); Albumin Level 4.7 g/dL (3.5-5.1); Alkaline Phosphatase 77 U/L (38-126); Anion Gap 7 mmol/L (8-16); Aspartate Amino Transferase 24 U/L (14-36); Bilirubin,Total 0.8 mg/dL (0.2-1.3); Blood Urea Nitrogen 13 mg/dL (7-17); Calcium 9.4 mg/dL (8.4-10.2); Carbon Dioxide 28 mmol/L (22-30); Chloride 100 mmol/L (98-107); Estimated Glomerular Filt Rate > 60; Glucose 96 mg/dL (65-110); Sodium 135 mmol/L (137-145)
== END 2022-09-14 07:44 | disposition home or self-care (01) ==
LOC: ANHLAB 07:45
PROVIDERS: PCP Family Medicine; Visit Provider Nurse Practitioner Family
DX: I10 Essential (primary) hypertension (principal)
CPT/HCPCS: 36415; 80053

== ENCOUNTER 2023-03-13 08:17 | Outpatient (CLI) | payer MEDICARE, OTHER, SELFPAY ==
[2023-03-13 09:13] LABS: Basophils Absolute Auto 0.1 K/mm3 (0.0-0.1); Eosinophils Absolute Auto 0.5 K/mm3 (0-0.3); Eosinophils Percent Auto 9.4 % (0-4.4); Hematocrit 46.4 % (37.0-47.0); Hemoglobin 14.9 g/dL (12.0-15.0); Immature Granulocyte Absolute 0.04 K/mm3 (0.00-0.031); Immature Granulocyte Percent A 0.8 % (0-0.5); Lymphocytes Percent Auto 35.6 % (18.3-44.2); Mean Corpuscular HGB Conc 32.1 g/dl (32-36); Mean Corpuscular Hemoglobin 25.6 pg (26-34); Mean Corpuscular Volume 79.6 fl (80-100); Mean Platelet Volume 10.9 fl (7.4-10.4); Monocytes Absolute Auto 0.8 K/mm3 (0.1-0.6); Monocytes Percent Auto 16.5 % (2.6-8.5); Neutrophils Absolute Auto 1.8 K/mm3 (1.3-6.7); Neutrophils Percent Auto 36.7 % (45.5-73.1); Platelet Count Result 183 k/mm3 (150-375); Red Blood Count 5.83 M/mm3 (4.2-5.4); Red Cell Distribution Width 14.8 % (11.5-14.5); White Blood Count 4.8 K/mm3 (4.5-10.0)
[2023-03-13 09:24] LABS: Alanine Aminotransferase 27 U/L (6-35); Albumin Level 4.4 g/dL (3.5-5.1); Alkaline Phosphatase 71 U/L (38-126); Anion Gap 8 mmol/L (8-16); Aspartate Amino Transferase 25 U/L (14-36); Bilirubin,Total 0.6 mg/dL (0.2-1.3); Blood Urea Nitrogen 17 mg/dL (7-17); Calcium 9.1 mg/dL (8.4-10.2); Carbon Dioxide 28 mmol/L (22-30); Chloride 100 mmol/L (98-107); Cholesterol 171 mg/dL (0-200); Estimated Glomerular Filt Rate > 60; Glucose 86 mg/dL (65-110); HDL Direct 74 mg/dL; Potassium 3.9 mmol/L (3.4-5.0); Sodium 136 mmol/L (137-145); Triglycerides 55 mg/dL (<150)
[2023-03-13 09:26] LABS: Appearance Urine Clear (Clear); Bacteria Urine None Seen /hpf; Bilirubin Urine Negative (Negative); Blood Urine Negative (Negative); Color Urine Yellow (Yellow); Glucose Urine UA Negative (Negative); Ketones Urine Negative (Negative); Leukocyte Esterase Ur 1+ LEU/UL (NEGATIVE); Need Manual Microscopic Reviewed; Nitrate Urine Negative (Negative); Non Pathogenic Casts 0-2; Protein Urine Negative (Negative); RBC Urine 0-2 /hpf (0-2); Specific Grav Ur 1.012 (1.001-1.035); Squamous Epithelial Cell Urine None seen /hpf (Few); Urobilinogen Urine 0.2 mg/dL (<2.0); WBC Urine 0-5 /hpf (0-3)
[2023-03-13 09:27] LABS: Add Urine Microscopic? YES
[2023-03-13 09:35] LABS: LDL Cholesterol Direct 76 mg/dL
[2023-03-13 09:52] LABS: Vitamin D 25 Hydroxy 25.4 ng/mL
== END 2023-03-13 08:18 | disposition home or self-care (01) ==
PROVIDERS: PCP Family Medicine; Visit Provider Physician Assistant
DX: E55.9 Vitamin D deficiency, unspecified (principal); R71.8 Other abnormality of red blood cells; I10 Essential (primary) hypertension
CPT/HCPCS: 36415; 80053; 80061; 81001; 82306; 84443; 85025

== ENCOUNTER 2023-05-23 12:15 | Outpatient (CLI) | payer MEDICARE, OTHER, SELFPAY ==
--- NOTE | ~2023-05-23 | CT_ITS ---
EXAMINATION: CT abdomen pelvis w con DATE: 05/23/2023 13:49 INDICATION: Abdominal pain TECHNIQUE: Computed tomography (CT) of the abdomen and pelvis was performed with 100 mL Omnipaque-350 intravenous contrast. Automated exposure control and iterative reconstruction technique were employe d. The dose-length product was 340.43 mGy-cm. COMPARISON: None FINDINGS: Large sliding-type hiatal hernia which contains essentially entire stomach and with herniation of a p ortion of the distal transverse colon. There is a minimal amount of surrounding ascites within the he rnia. There is compressive atelectasis in the adjacent medial aspect of the bilateral lower lobes, ri ght greater than left. Trace right pleural effusion. Cardiomegaly with very small pericardial effusio n. Liver, gallbladder, spleen, pancreas, bilateral adrenal glands and left kidney are normal. 8 mm ri ght renal cyst. There is prominent dilation of the gas and liquid stool filled proximal to mid colon. This transitions to stool within a normal caliber sigmoid colon with transition point in the anterio r to the aortic bifurcation but without evident obstructing mass. No dilated small bowel to suggest o bstruction. There is a 14.7 x 7.7 x 9.8 cm cystic lesion in the central pelvis which exerts mass effe ct upon the more caudal-most decompressed bladder as well as the more posterior uterus. This could re present an ovarian cyst however the ovaries are not completely definitively identified. 1.4 cm hypoen hancing fibroid at the posterior body of the uterus with coarse calcific location at the fundus likel y representing an additional degenerated fibroid. No evident free fluid within the abdomen or pelvis proper. No pneumatosis or free intraperitoneal gas. No pathologically enlarged abdominal or pelvic ly mphadenopathy. Mild S-shaped curvature of the thoracolumbar spine with moderate to severe spondylosis . Severe left hip osteoarthritis with prominent subarticular cystlike changes at both sides of the dasha int space. IMPRESSION: 1. 14.7 x 7.7 x 9.8 cm simple appearing cystic lesion in the central pelvis with differential includi ng adnexal cyst which could be either left or right-sided or peritoneal inclusion cyst. 2. Prominent gas and liquid stool throughout the dilated proximal to mid colon. There is a transition point at the mid sigmoid colon but without evident obstructing mass. 3. Large hiatal hernia containing nearly the entire stomach, and a segment of nonobstructed transvers e colon as well as a minimal amount of ascites. 4. Cardiomegaly with very small pericardial effusion. 5. Fibroid uterus. Reviewed, dictated and finalized at location A. K TRIMMER IMPRESSION: 1. 14.7 x 7.7 x 9.8 cm simple appearing cystic lesion in the central pelvis wit h differential including adnexal cyst which could be either left or right-sided or peritoneal inclusion cyst. 2. Prominent gas and liquid stool throughout the dilated proximal to mid colon. There is a transition point at the mid sigmoid colon but without evident obstr ucting mass. 3. Large hiatal hernia containing nearly the entire stomach, and a segment of n onobstructed transverse colon as well as a minimal amount of ascites. 4. Cardiomegaly with very small pericardial effusion. 5. Fibroid uterus.
[2023-05-23 13:44] LABS: Estimated Glomerular Filt Rate > 60
== END 2023-05-23 12:16 | disposition home or self-care (01) ==
PROVIDERS: PCP Family Medicine; Visit Provider Physician Assistant Medical
DX: R10.829 Rebound abdominal tenderness, unspecified site (principal); K44.9 Diaphragmatic hernia without obstruction or gangrene; I51.7 Cardiomegaly; I31.39 Other pericardial effusion (noninflammatory); D25.9 Leiomyoma of uterus, unspecified; M99.85 Other biomechanical lesions of pelvic region; Z87.19 Personal history of other diseases of the digestive system
CPT/HCPCS: 74177; Q9967

== ENCOUNTER 2023-05-30 13:40 | Outpatient (CLI) | payer MEDICARE, OTHER, SELFPAY ==
--- NOTE | 2023-05-30 13:30 | ECG_ITS ---
Measurements Intervals [place] Rate: 82 P: -13 VA: 195 QRS: -47 QRSD: 149 T: -22 QT: 408 QTc: 477 Interpretive Statements SINUS RHYTHM RIGHT BUNDLE BRANCH BLOCK LEFT ANTERIOR FASCICULAR BLOCK MINIMAL Q WAVES- HIGH LATERAL LEADS BASELINE ARTIFACT- I, II, AVR, AVL, V4 ABNORMAL ECG NO PREVIOUS ECG AVAILABLE FOR COMPARISON Electronically Signed On 05-30-2023 14:16:03 PRINT INSPECTOR by Michael Chavis D.O.
[2023-05-30 15:06] LABS: Basophils Absolute Auto 0.1 K/mm3 (0.0-0.1); Basophils Percent Auto 0.5 % (0.2-1.2); Eosinophils Absolute Auto 0.3 K/mm3 (0-0.3); Eosinophils Percent Auto 2.8 % (0-4.4); Hematocrit 47.3 % (37.0-47.0); Hemoglobin 15.3 g/dL (12.0-15.0); Immature Granulocyte Absolute 0.08 K/mm3 (0.00-0.031); Immature Granulocyte Percent A 0.8 % (0-0.5); Mean Corpuscular HGB Conc 32.3 g/dl (32-36); Mean Corpuscular Volume 77.4 fl (80-100); Mean Platelet Volume 10.8 fl (7.4-10.4); Monocytes Absolute Auto 2.3 K/mm3 (0.1-0.6); Monocytes Percent Auto 22.9 % (2.6-8.5); Platelet Count Result 196 k/mm3 (150-375); Red Blood Count 6.11 M/mm3 (4.2-5.4); Red Cell Distribution Width 15.5 % (11.5-14.5)
== END 2023-05-30 13:41 | disposition home or self-care (01) ==
LOC: ANHSURGERY 13:45
PROVIDERS: PCP Family Medicine; Visit Provider Obstetrics & Gynecology
DX: R93.41 Abnormal radiologic findings on diagnostic imaging of renal pelvis, ureter, or bladder (principal); I45.10 Unspecified right bundle-branch block; I44.4 Left anterior fascicular block; R10.2 Pelvic and perineal pain; I10 Essential (primary) hypertension
CPT/HCPCS: 36415; 85025; 86850; 86900; 86901; 93005

== ENCOUNTER 2023-06-01 01:04 | Day surgery (SDC) | payer MEDICARE, OTHER, SELFPAY ==
--- NOTE | 2023-05-30 07:13 | PM.IMHP ---
H&P: HPI History of Present Illness Date/Time: 05/30/23 07:13 Chief Complaint: Enlarged uterus and pelvic pain/uterine fibroids Narrative: 72-year-old female with known fibroids. She is admitted for robotic vaginal hysterectomy and bilateral salpingo-oophorectomy. Risks and benefits were reviewed including but not exclusive of , aspiration pneumonia, bleeding, transfusion, perforation injury to bowel, bladder, ureters, or other internal organs with need for open laparotomy. She received the ACOG handout entitled hysterectomy well as the de So handout. She had all questions answered to her satisfaction. She asked to proceed PMFSH Past Medical History Medical History Cataract Colon polyp Essential (primary) hypertension IFG (impaired fasting glucose) Melanoma in situ Rosacea Surgical History Surgical History H/O melanoma excision History of cataract surgery History of tubal ligation Family History Family History Mother Hypertension Cerebrovascular accident Family history of malignant neoplasm of breast in first degree relative Father Malignant neoplasm of prostate Family history of lung cancer Social History Social History Smoking status: Former smoker Tobacco type: cigarettes Smoking end date: 07/16/81 Additional smoking assessment comments: IN COLLEGE FOR A SHORT PERIOD OF TIME Alcohol intake: current Alcohol use details: 1-2/MONTH Substance use: never Substance use type: does not use Living arrangements: with family Occupation/Education: retired Gender identity (if verbalized by the patient): Female Spiritual care concerns: No Meds Home Medications and Allergies Home Medications Medication Instructions Recorded Confirmed Type [id number]-xqcj-alsc 8 mg-folic 400 1 tablet PO DAILY 05/27/19 05/25/23 History mcg-K 50 mcg-lutein 300 mcg tablet (Centrum Silver Women) cyclosporine 0.05 % eye drops in a 1 drp ophthalmic (eye) DAILY 08/07/19 05/25/23 History dropperette (Restasis) metronidazole 1 % topical gel 1 applic topical DAILY #60 grams 02/11/20 05/25/23 Rx amlodipine 5 mg tablet See Rx Instructions .Route 09/08/22 05/25/23 Rx .COMPLEX #90 tabs irbesartan 300 mg tablet 300 mg PO DAILY #90 tabs 12/04/22 05/25/23 Rx Allergies Allergy/AdvReac Type Severity Reaction Status Date / Time Sulfa (Sulfonamide Allergy Intermediate Rash Verified 05/24/23 09:11 Antibiotics) lisinopril AdvReac Intermediate Cough Verified 05/24/23 09:11 Exam Const: General: cooperative, healthy appearing, comfortable and average body habitus Orientation/consciousness: oriented to person, oriented to place and oriented to time HENMT: Head: normal to inspection Resp: Effort & Inspection: normal respiratory effort Cardio: Rate: regular rate Rhythm: regular rhythm Heart sounds: S1 normal heart sound present and S2 normal heart sound present GI: Inspection: normal to inspection : External Female Exam: normal external appearance Speculum Exam - Vagina: normal appearance of the vagina Speculum Exam - Cervix: normal appearance of the cervix Bimanual exam- vagina & uterus: enlarged and Uterine tenderness Bimanual Exam- Adnexa, other: normal adnexae Assessment and Plan Assessment and plan (1) Enlarged uterus: Code(s): N85.2 - Hypertrophy of uterus Status: Acute (2) Uterine fibroid: Code(s): D25.9 - Leiomyoma of uterus, unspecified Status: Acute (3) Pelvic pain: Code(s): R10.2 - Pelvic and perineal pain Status: Acute Plan Robotic total vaginal hysterectomy bilateral salpingo-oophorectomy
--- NOTE | 2023-05-30 12:40 | PC.NURSE ---
Report to the Outpatient Waiting Room, entrance under the green pavilion located off [facility], at time __1130 on date _06/01/23 . Planned Procedure Time: _1330 . Time changes happen often and if your time is changed the preop area will call you the afternoon before. - You and your visitor will be asked to self-screen and do not enter if you have any COVID symptoms. - A mask is optional within the hospital at this time. Patients may have clear liquids (water, carbonated beverages, clear teas, apple juice) until 3 hours prior to surgery with a maximum of 20 ounces. - No food from midnight until time of surgery - Infants may have breast milk until 4 hours before surgery, infant formula 6 hours prior to surgery. - Children will be allowed to drink immediately following surgery. If applicable, please bring a bottle or sippy cup to assist with drinking. Juice, water, soda, and popsicles are readily available. For infants on formula, please bring formula the day of surgery. Pacifiers are allowed. Take the following medications with a SIP of water the morning of surgery: ___NONE DO NOT STOP ANY OF YOUR OTHER PRESCRIPTION MEDICATIONS PRIOR TO SURGERY ?EXCEPT THE FOLLOWING Medications to discontinue per physician ALL VITAMINS 3 DAYS PRE OP LAST DOSE 05/28/23 Please no make-up, nail cypriot, hairspray, perfume, deodorant, or body powder the day of surgery. No jewelry (including any body piercings) or valuables the day of surgery, leave them at home. Please take a shower or bath the night before, or the morning of, surgery with an antibacterial soap. Wear comfortable, loose fitting clothing. Children are encouraged to wear pajamas. - Jewelry must be removed prior to entering the operating room. Rings and piercings that are not removed may be cut off. - The hospital will not accept responsibility for valuables. - Please leave all valuables, including medications, at home the day of surgery. If you are going home after surgery, a licensed [employer] company driver must drive you home. - NO public transportation without another adult if you receive anesthesia. - We recommend that an adult stay with you for 24 hours following discharge. - We also recommend that you do not drive, make important decision, drink alcoholic beverages, or take any drugs that were not prescribed by your health care provider for at least 24 hours after your discharge erin Follow any additional instructions given to you from your surgeon. If you or anyone in your household have experienced Covid symptoms in the past week, please notify your surgeon or the nurse liaison at the phone number below for possible testing. Telephone instructions given to ___PATIENT and asked if any additional questions and then verbalized understanding. Patient advised to call surgeon office or pre surgery nurse liaison [phone] if any additional questions.
[2023-05-30 12:47] VITALS: BMI 23.1
[2023-06-01] VITALS (11 sets, daily range): BP systolic 114–144; BP diastolic 71–86; PULSE 68–92; RESP 12–36; TEMP 36.3–36.8; O2SAT 92–100; BMI 23.7
--- NOTE | 2023-06-01 06:36 | WPDHPUPDATE1 ---
History and Physical Update Update Date/Time: 06/01/23 06:36 History and Physical has been reviewed, including an updated exam of the patient. There are NO changes in the patient's condition. Risks, benefits, and alternatives have been discussed and questions answered. Patient agrees to proceed with procedure.
[2023-06-01] MEDS: LACTATED RINGERS 1,000 ML 30 ML IV CONT ×2 (12:15→16:06)
[2023-06-01] MEDS: ACETAMINOPHEN 500 MG TABLET 1000 MG PO (12:32)
[2023-06-01] MEDS: KETOROLAC 15 MG/ML VIAL (*BKC) IV PUSH (12:33)
--- NOTE | 2023-06-01 12:44 | WPDANESEPPF ---
Anes - Initial Pre Proc Eval Procedure: Operation Date: 06/01/23 13:30 Proposed Procedures p Robotic Assisted Total Vaginal Hysterectomy with Bilateral Salpingo-oophorectomy - Favian Phelps MD Date/Time: 06/01/23 12:44 Surgeon: Favian Phelps MD Pre Op Diagnosis: Severe Pelvic Pain, Fibroids, Enlarg Uterus Patient Data Age: 72 Gender: F Height: 1.65 m Weight: 64.6 kg Allergies Allergy/AdvReac Type Severity Reaction Status Date / Time Sulfa (Sulfonamide Allergy Intermediate Rash Verified 06/01/23 12:25 Antibiotics) lisinopril AdvReac Intermediate Cough Verified 06/01/23 12:25 milk AdvReac Unknown Gastrointestinal Verified 06/01/23 12:25 Upset Home Medications Medication Instructions Recorded Confirmed Type hdwcvvjy-ponh-soty 8 mg-folic 400 1 tablet PO DAILY 05/27/19 06/01/23 History mcg-K 50 mcg-lutein 300 mcg tablet (Centrum Silver Women) cyclosporine 0.05 % eye drops in a 1 drp EACH EYE BID 08/07/19 05/30/23 History dropperette (Restasis) irbesartan 300 mg tablet 300 mg PO DAILY #90 tabs 12/04/22 05/30/23 Rx acetaminophen 500 mg capsule 500 mg PO Q6H PRN Pain 05/30/23 05/30/23 History amlodipine 5 mg tablet 5 mg PO HS 05/30/23 05/30/23 History hydrocodone 5 mg-acetaminophen 325 1 tablet PO Q4H PRN pain #20 tabs 06/01/23 Rx mg tablet Patient hx anesthesia problems: post op nausea/vomiting Family hx anesthesia problems: none Results Review: All pre-operative results and documents have been reviewed as part of the pre-operative evaluation. [facility] Past Medical History Medical History Cataract Colon polyp Essential (primary) hypertension IFG (impaired fasting glucose) Melanoma in situ Rosacea Surgical History Surgical History H/O melanoma excision History of cataract surgery History of tubal ligation Family History Family History Mother Hypertension Cerebrovascular accident Family history of malignant neoplasm of breast in first degree relative Father Malignant neoplasm of prostate Family history of lung cancer Social History Social History Smoking packs per day: 1 Smoking cigarettes per day: 20.0 Years smoked: 3 Smoking pack-years: 3.00 Smoking status: Former smoker Tobacco type: cigarettes Smoking end date: 07/16/81 Additional smoking assessment comments: IN COLLEGE FOR A SHORT PERIOD OF TIME Alcohol intake: current Alcohol use details: 2 DRINKS PER MONTH Substance use: never Substance use type: does not use Living arrangements: with family Occupation/Education: retired Gender identity (if verbalized by the patient): Female Spiritual care concerns: No Anes - Eval Final PreProcedure Day of Procedure 06/01/23 12:44 Patient weight: normal Heart: regular rate and rhythm Lungs: clear to auscultation Airway: Mallampati scale class II Neurological: alert and oriented Last oral intake: >/= 8 hours ASA classification: II Emergent: no Anesthetic plan: proceed Anesthesia type and monitoring: general ETT and standard monitoring Results Review: All pre-operative results and documents have been reviewed as part of the pre-operative evaluation. Informed Consent: The patient's anesthetic plan and its attendant risks and benefits were discussed with the patient/family/POA. Questions were solicited and answers provided to the satisfaction of the patient/family/POA.
[2023-06-01] MEDS: SCOPOLAMINE 1.5 MG PATCH TRANSDERM (12:48)
[2023-06-01] MEDS: ceFAZolin 2 GM/D5W 50 ML 2 GM/50 ML BAG IVPB (14:05)
--- NOTE | 2023-06-01 15:14 | W.PM.PROC2 ---
Procedure Note - Detailed Date of Procedure 06/01/23 Pre-op Diagnosis Severe Pelvic Pain, Fibroids, Enlarg Uterus Post-op Diagnosis Same Procedure Performed Robotic total vaginal hysterectomy and bilateral salpingo-oophorectomy Surgeon Favian Phelps MD Anesthesia General Indications This is a 72-year-old female with severe pelvic pain and a markedly enlarged left ovary Findings Large left ovary with the mild torsion more than 600cc of clear fluid. Fibroid uterus Description of Procedure Patient was prepped draped in normal sterile fashion placed in the dorsal lithotomy position. Under excellent general trach anesthesia weighted speculum placed posterior fornix vagina. Anterior lip of cervix grasped with single-tooth tenaculum. Uterus sounded to 11cm. Serial dilatation with fragmented dilators performed followed passes the 10. KARTHIK and the 3. Cold cup. Next the 1st 16 Green[place]ic catheter was placed in the bladder draining clear urine. This weighted speculum was removed the gloves were changed. A supraumbilical incision made the Veress needle passed in the abdomen. Abdomen filled with CO2 gas 15 was mercury. The 8mm trocar advanced in the abdomen. Downside visualized no injury seen patient placed in 18? of Trendelenburg. Right left lateral quadrant incision made 8mm trocars advanced under direct visualization right upper quadrant incision made the 8mm trocar advanced under direct visualization assuring no injury. The robot was docked. Attention was turned to the console. The large left ovary was seen and it was somewhat torsed. It was pierced and drained of more than 600cc of clear serous fluid. The ovary was the infundibulopelvic structure on that side was clamped burned cut brought to the level of the ovary and this was placed in the cul-de-sac. The left round ligament grasped, burned, cut. Anterior bladder flap was formed by sharply dissecting the peritoneum across the cervix and pushing the bladder caudally away from the cervix uterus the opposite round ligament which was clamped, burned, cut. The right infundibulopelvic structure was skeletonized to remove the right adnexa this was clamped, burned, cut brought to the level of previous cut round ligament. Cardinal broad ligaments on the left were serially skeletonized clamping burning cutting and bringing this to the level of the uterine vessels on the left these were large and tortuous they were individually clamped, burned, cut. In similar fashion on the right the cardinal broad ligaments were clamped cut and burned hugging the cervix used until the large vessels on the right were seen these were then clamped, burned, cut. And blanching the uterus was noted colpotomy incision made the cervix uterus and tubes and ovaries removed through the vagina. Vagina closed with continuous running 0V lock from lateral edge to lateral edge back the midline. Irrigation undertaken to clear and blood loss estimated at 25cc. The robot was undocked. The gas removed from the abdomen the incisions closed with 4 Monocryl and glue the patient went to recovery in satisfactory condition. All sponge, needle, instrument counts were correct. There were no immediate complications Estimated Blood Loss 25 Drains No Packing No Pathology Yes Complications No immediate complications Condition Stable Disposition PACU
--- NOTE | 2023-06-01 15:22 | P.DS_ITS ---
DS: Admitting Diagnosis Discharge Date 06/02/2023 Admitting Diagnosis Left ovarian cyst/fibroid uterus DS: Discharge Diagnosis Discharge Diagnosis (1) Pelvic pain: Code(s): R10.2 - Pelvic and perineal pain Status: Acute (2) Uterine fibroid: Code(s): D25.9 - Leiomyoma of uterus, unspecified Status: Acute (3) Enlarged uterus: Code(s): N85.2 - Hypertrophy of uterus Status: Acute DS: Summary Hospital Course Reason for hospitalization: Patient was admitted for robotic total hysterectomy bilateral salpingo- oophorectomy on 06/01/2023 Hospital Course: Patient underwent an unremarkable procedure on 06/01/2023. Her hospital course unremarkable. She remained afebrile. She was up, eating urine diet, ambulating, voiding without difficulty, in general the complaint. Time Spent with Patient Time attestation: Total time spent providing and/or coordinating discharge services: Exam Const: General: cooperative, healthy appearing and comfortable Nutritional Appearance: average body habitus Orientation/consciousness: oriented to person, oriented to place and oriented to time HENMT: Head: normal to inspection Resp: Effort & Inspection: normal respiratory effort Cardio: Rate: regular rate Rhythm: regular rhythm Heart sounds: S1 normal heart sound present and S2 normal heart sound present GI: Inspection: normal to inspection and incision (Wounds are clean dry and intact) DS: Data Data Completed and Pending Pending studies at discharge: Pending at discharge 06/01/23 15:01 Surgical [PTH] Routine Discharge Plan Discharge Patient Disposition: Home, Self-Care Discharge Instructions: Remove the Scopolamine patch that was placed behind your ear (on 06/01/2023) in 72 hours or less. Wash your hands after touching. Stand Alone Forms: General Discharge Instructions Follow-up/Referrals: Favian Mcneal MD [Physician] - Discharge Medications: New hydrocodone-acetaminophen 5-325 mg tablet 1 tablet PO Q4H PRN (Reason: pain) Qty: 20 0RF No Action Centrum Silver Women 8 mg iron-400 mcg-300 mcg tablet 1 tablet PO DAILY cyclosporine [Restasis] 0.05 % dropperette 1 drp EACH EYE BID amlodipine 5 mg tablet 5 mg PO HS Rx Instructions: TAKE 1 TABLET BY MOUTH DAILY acetaminophen [Tylenol Extra Strength] 500 mg Capsule 500 mg PO Q6H PRN (Reason: Pain) irbesartan 300 mg tablet 300 mg PO DAILY Qty: 90 2RF
[2023-06-01] MEDS: fentaNYL CITRATE INJ (*CRX) 100 MCG/2 ML VIAL 25 MCG IV PUSH ×4 (15:44→15:54)
[2023-06-01] MEDS: HYDROmorphone HCL INJ (*CRX) 1 MG/ML SYR 0.5 MG IV PUSH ×4 (16:00→16:27)
--- NOTE | 2023-06-01 16:51 | SUR.PHASEI ---
Dr. Barbara Phelps came to the bedside and evaluated the hematoma himself. He said to apply an abdominal binder and continue to monitor it for now.
--- NOTE | 2023-06-01 17:30 | PC.NURSE ---
Patient transferred to post room #289 via ( stretcher ). Support person present. Oriented to unit, room, information board, rooming in, admission packet and security measures. Patient verbalizes understanding.
[2023-06-01] MEDS: DEXTROSE 5%/LACTATED RINGERS 1,000 ML 125 ML IV CONT (17:50)
[2023-06-01] MEDS: DOCUSATE SODIUM 100 MG CAPSULE PO (17:50)
[2023-06-01] MEDS: KETOROLAC 30 MG/ML VIAL (*BKC) IV PUSH (17:51)
[2023-06-01] MEDS: SIMETHICONE 80 MG TAB.CHEW PO (20:30)
[2023-06-01] MEDS: amLODIPine BESYLATE 5 MG TABLET PO (20:30)
[2023-06-02] VITALS: BP 99/54; PULSE 68; RESP 18; TEMP 36.6; O2SAT 99
[2023-06-02] MEDS: HYDROcodone/acetaminophen (*CRX) 5-325 MG TABLET 1 TAB PO ×2 (00:35→08:14)
[2023-06-02 04:00] VITALS: BP 119/66; PULSE 62; RESP 18; TEMP 36.4; O2SAT 97
[2023-06-02 05:37] LABS: Basophils Percent Auto 0.3 % (0.2-1.2); Eosinophils Absolute Auto 0.3 K/mm3 (0-0.3); Eosinophils Percent Auto 2.2 % (0-4.4); Hematocrit 38.2 % (37.0-47.0); Hemoglobin 12.3 g/dL (12.0-15.0); Immature Granulocyte Absolute 0.09 K/mm3 (0.00-0.031); Immature Granulocyte Percent A 0.8 % (0-0.5); Lymphocytes Absolute Auto 1.18 K/mm3 (0.9-3.2); Lymphocytes Percent Auto 10.4 % (18.3-44.2); Mean Corpuscular HGB Conc 32.2 g/dl (32-36); Mean Corpuscular Hemoglobin 25.1 pg (26-34); Mean Platelet Volume 10.4 fl (7.4-10.4); Monocytes Absolute Auto 1.5 K/mm3 (0.1-0.6); Monocytes Percent Auto 13.2 % (2.6-8.5); Neutrophils Absolute Auto 8.3 K/mm3 (1.3-6.7); Neutrophils Percent Auto 73.1 % (45.5-73.1); Platelet Count Result 158 k/mm3 (150-375); Red Cell Distribution Width 14.8 % (11.5-14.5); White Blood Count 11.4 K/mm3 (4.5-10.0)
--- NOTE | 2023-06-02 06:09 | PM.GYNPNOP ---
SLOT ATTENDANT - A/P Postoperative Procedures: Procedures Operation Date: 06/01/23 13:30 Actual Procedure Side Surgeon p Robotic Assisted Total Vaginal Hysterectomy with Bilateral Salpingo-oophorectomy Bilateral Favian Phelps MD Postoperative day: 1 Postoperative status: doing well Postoperative plan: routine post-op care, see orders, ambulate, advance diet and discharge Time Spent With Patient Time: Total time spent is greater than 50% in coordination of care (as documented) at patient's floor/unit and/or counseling patient: Time with patient: less than 15 minutes SLOT ATTENDANT- PN:Subj Post-Op Subjective Date/time seen: 06/02/23 06:09 Subjective: patient has no complaints, patient desires discharge, pain is well controlled and patient is tolerating oral intake Exam Const: General: cooperative, healthy appearing and comfortable Nutritional Appearance: average body habitus Orientation/consciousness: oriented to person, oriented to place and oriented to time Resp: Effort & Inspection: normal respiratory effort Cardio: Rate: regular rate Rhythm: regular rhythm Heart sounds: S1 normal heart sound present and S2 normal heart sound present GI: Inspection: normal to inspection and incision (cdi) SLOT ATTENDANT - PN: Obj Data Vital Signs Vital Signs: Vital Signs - 24 hr 06/01/23 11:40 06/01/23 15:29 06/01/23 15:45 Temperature 97.6 F 98.3 F Pulse Rate 92 80 76 Respiratory Rate 16 18 33 H Blood Pressure 124/82 126/78 135/77 Pulse Oximetry 99 99 100 Oxygen Delivery Room Air Simple Face Mask Simple Face Mask Oxygen Flow Rate 8 8 06/01/23 16:00 06/01/23 16:15 06/01/23 16:30 Temperature Pulse Rate 73 75 70 Respiratory Rate 30 H 36 H 33 H Blood Pressure 141/80 H 143/75 H 136/82 Pulse Oximetry 99 100 100 Oxygen Delivery Simple Face Mask Nasal Cannula Nasal Cannula Oxygen Flow Rate 8 2 2 06/01/23 16:45 06/01/23 17:00 06/01/23 17:15 Temperature Pulse Rate 76 76 75 Respiratory Rate 17 16 12 Blood Pressure 139/86 144/80 H 142/78 H Pulse Oximetry 93 93 92 Oxygen Delivery Nasal Cannula Nasal Cannula Nasal Cannula Oxygen Flow Rate 1 1 1 06/01/23 17:45 06/01/23 17:45 06/01/23 20:00 Temperature 97.4 F L 97.7 F Pulse Rate 72 68 Respiratory Rate 16 18 Blood Pressure 127/85 114/71 Pulse Oximetry 95 95 99 Oxygen Delivery Nasal Cannula Oxygen Flow Rate 2 06/01/23 20:00 06/02/23 00:00 06/02/23 00:00 Temperature 97.9 F Pulse Rate 68 68 Respiratory Rate 18 18 Blood Pressure 99/54 L Pulse Oximetry 97 99 99 Oxygen Delivery Room Air Room Air Oxygen Flow Rate 06/02/23 04:00 06/02/23 04:00 Temperature 97.5 F L Pulse Rate 62 Respiratory Rate 18 Blood Pressure 119/66 Pulse Oximetry 97 Oxygen Delivery Room Air Oxygen Flow Rate Intake/Output Intake/Output: Intake & Output 05/30/23 05/31/23 06/01/23 06/02/23 23:59 23:59 23:59 23:59 Intake Total 1300 Output Total 730 Balance 570 Meds/Results Medications: Active Medications Generic Name Dose Route Start Last Admin Trade Name Freq PRN Reason Stop Dose Admin Hydrocodone Bitart/Acetaminophen 1 tab 06/01/23 17:23 06/02/23 00:35 Hydrocodone/Acetaminophen (*Crx) 5-325 Mg Tablet PO 1 tab Q3H PRN Administration Pain Rated 5 or Less Hydrocodone Bitart/Acetaminophen 1 tab 06/01/23 17:23 Hydrocodone/Acetaminophen (*Crx) 10-325 Mg Tablet PO Q3H PRN Pain Rated 6 or Greater Amlodipine Besylate 5 mg 06/01/23 21:00 06/01/23 20:30 Amlodipine Besylate 5 Mg Tablet PO 5 mg HS AIRAM Administration Docusate Sodium 100 mg 06/01/23 17:23 06/01/23 17:50 Docusate Sodium 100 Mg Capsule PO 100 mg BID AIRAM Administration Enoxaparin Sodium 40 mg 06/02/23 09:00 Enoxaparin 40 Mg/0.4 Ml Syringe SUB-Q DAILY AIRAM Dextrose/Lactated Ringer's 1,000 mls @ 125 mls/hr 06/01/23 17:23 06/01/23 22:00 Dextrose 5%/Lactated Ringers IV CONT 0 mls/hr .Q8H AIRAM Infusion Ibuprofen
[2023-06-02] MEDS: DOCUSATE SODIUM 100 MG CAPSULE PO (08:13)
[2023-06-02] MEDS: SIMETHICONE 80 MG TAB.CHEW PO (08:15)
[2023-06-02] MEDS: ENOXAPARIN 40 MG/0.4 ML SYRINGE SUB-Q (08:15)
[2023-06-02 08:23] VITALS: BP 124/68; PULSE 70; RESP 16; TEMP 36.2; O2SAT 98
== END 2023-06-02 11:11 | disposition home or self-care (01) ==
LOC: ANHSURGERY 12:46 → ANHOB2 17:27
PROVIDERS: PCP Family Medicine; Visit Provider Obstetrics & Gynecology
PROC: (CPT 58552; principal; 2023-06-01 13:30)
DX: D25.2 Subserosal leiomyoma of uterus (principal); N72 Inflammatory disease of cervix uteri; N88.8 Other specified noninflammatory disorders of cervix uteri; N70.11 Chronic salpingitis; D27.1 Benign neoplasm of left ovary; N83.01 Follicular cyst of right ovary; R10.2 Pelvic and perineal pain; N83.512 Torsion of left ovary and ovarian pedicle; I10 Essential (primary) hypertension
CPT/HCPCS: 58552; S2900; 36415; 85025; 88307; 99199; A9270; J0330; J0690; J1100; J1170; J1650; J1885; J2405; J2704; J3010; J7120; J7121

== ENCOUNTER 2023-07-06 08:19 | Outpatient (CLI) | payer MEDICARE, OTHER, SELFPAY ==
--- NOTE | ~2023-07-06 | XR_ITS ---
EXAMINATION: XR UGI w small bowel DATE: 07/06/2023 11:12 INDICATION: Diaphragmatic hernia TECHNIQUE: The patient drank thick barium, gas-producing crystals, and thin barium. Conventional supi ne abdomen radiographs and fluoroscopic spot radiographs of the esophagus, stomach, and proximal smal l bowel were obtained. Additional overhead radiographs were obtained during the transit through the s mall bowel. Spot fluoroscopic images of the small bowel were obtained upon contrast reaching the cec um. A total of 873 fluoroscopic images and 7 overhead radiographs were obtained. Fluoroscopy exposure time was 2.3 minutes. Total DAP was 50.108 Gycm^2 COMPARISON: CT abdomen pelvis dated 05/23/2023 FINDINGS: There is a large sliding-type hiatal hernia which contains the majority of the stomach. The hernia al so contains a gas-filled portion of the transverse colon which does not fill with contrast on the ini tial upper GI portion of the study but which can be seen containing contrast on the final overhead ra diograph obtained as part of the small bowel follow-through. The hernia exerts mass effect upon the m ore posterior esophagus. The esophagus is otherwise normal without mass or stricture. Esophageal myles lity is normal. There was no gastroesophageal reflux with provocative maneuvers. The stomach and prox imal small bowel are normal. Transit time from the stomach to proximal colon was between 60-90 minutes. The contrast extends beyon d the herniated portion of the There is normal caliber and mucosal fold pattern throughout the small bowel. The terminal ileum was unable to be distinguished from the superimposed cecum and multiple add itional loops of ileum in the pelvis out of the overhead radiographs or real-time fluoroscopy. IMPRESSION: 1. Large hiatal hernia which contains the majority of the stomach as well as a portion of the transve rse colon. 2. Unremarkable small bowel follow-through but with the terminal ileum unable to be clearly distingui shed from the cecum and multiple additional superimposed loops of small bowel. Reviewed, dictated and finalized at location A. TEMPERER IMPRESSION: 1. Large hiatal hernia which contains the majority of the stomach as well as a portion of the transverse colon. 2. Unremarkable small bowel follow-through but with the terminal ileum unable t o be clearly distinguished from the cecum and multiple additional superimposed loops of small bowel.
== END 2023-07-06 08:20 | disposition home or self-care (01) ==
PROVIDERS: PCP Family Medicine; Visit Provider Surgery
DX: K44.9 Diaphragmatic hernia without obstruction or gangrene (principal); R14.0 Abdominal distension (gaseous)
CPT/HCPCS: 74240; 74248

== ENCOUNTER → 2023-09-10 10:11 | Outpatient (CLI) | payer MEDICARE, OTHER, SELFPAY ==
--- NOTE | ~2023-09-10 | MM_ITS ---
EXAMINATION: MM screening romeo BI w shanti HISTORY: Screening TECHNIQUE: Craniocaudal and mediolateral oblique 3-D tomosynthesis images were obtained and synthetic 2-D images were generated. CAD analysis was submitted and interpreted. COMPARISON: Comparison to multiple prior studies sequentially, with oldest reviewed study dated 10/2017. BREAST PARENCHYMAL COMPOSITION: Not dense: There are scattered areas of fibroglandular density. FINDINGS: The left breast is stable without evidence for malignancy. There is developing asymmetries centered in the upper outer quadrant of the right breast anteriorly. IMPRESSION: 1. Developing right breast asymmetry. 2. Additional mammographic views and possible breast ultrasound are recommended. BI-RADS Category 0: Incomplete: Needs additional imaging evaluation. Reviewed, dictated and finalized at location A. A P MANAGER IMPRESSION: 1. Developing right breast asymmetry. 2. Additional mammographic views and possible breast ultrasound are recommended . BI-RADS Category 0: Incomplete: Needs additional imaging evaluation.
--- NOTE | ~2023-09-10 | DEXA_ITS ---
Bone Density Report Name: GENTRY DOMINIQUE Age: 73 Sex: Female Ethnicity: White Date of : 1950 Indication: postmenopausal; screening for osteoporosis; height loss; Referring Provider: LIZA BOWEN Study: Bone densitometry was performed. Exam Date: September 10, 2023 Accession number: [id number] Bone Density: Region BMD T-score Z-score Classification AP Spine (L1-L4) 0.913 -1.2 1.2 Osteopenia Femoral Neck (Left) 0.623 -2.0 0.1 Osteopenia Total Hip (Left) 0.723 -1.8 0.0 Osteopenia Femoral Neck (Right) 0.692 -1.4 0.7 Osteopenia Total Hip (Right) 0.776 -1.4 0.4 Osteopenia Total Hip Mean 0.750 -1.6 0.2 Osteopenia World Health Organization criteria for BMD impression classify patients as: Normal (T-score at or above -1.0), Osteopenia (T-score between -1.0 and -2.5), or Osteoporosis (T-score at or below -2.5). 10-year Fracture Risk(1): Major Osteoporotic Fracture 14% Hip Fracture 3.6% Reported Risk Factors: [place] (), Neck BMD=0.623, BMI=25.2 (1) FRAX(R) Version 3.08. Fracture probability calculated for an untreated patient. Fracture probability may be lower if the patient has received treatment. Previous Exams: Region Exam Age BMD T-score BMD Change BMD Change Date g/cm2 vs Baseline vs Previous AP Spine(L1-L4) 09/10/2023 73 0.913 -1.2 -0.163* -0.163* 03/19/2018 67 1.076 0.3 Total Hip(Left) 09/10/2023 73 0.723 -1.8 -0.136* -0.136* 03/19/2018 67 0.860 -0.7 Total Hip(Right) 09/10/2023 73 0.776 -1.4 -0.136* -0.136* 03/19/2018 67 0.913 -0.2 *Denotes significance at 95% confidence level, LSC for AP Spine = 0.022 g/cm2, LSC for Total Hip = 0.027 g/cm2 Clinical Information Provided by Patient: Has used the following medications: Vitamin D, Calcium Patient maximum height was 65 Menopause Age: 56 Onset of menses at age 10 Number of children 2 Impression: The patient has low bone mass, based on the Left Femoral Neck T-score. The patient has an estimated ten-year risk of hip fracture of 3.6% and an estimated ten-year risk of major fracture of 14%, based on the WHO FRAX algorithm. The BMD for the AP Spine(L1-L4) decreased, changing by -0.163 since the last DXA exam. The BMD for the Total Hip(Left) decreased, changing by -0.136 since the last DXA exam. The BMD for the Total Hip(Right) decreased, changing by -0.136 since the last DXA exam. Discussion: BONE D
== END ==
PROVIDERS: PCP Obstetrics & Gynecology; Visit Provider Physician Assistant
DX: Z12.31 Encounter for screening mammogram for malignant neoplasm of breast (principal); Z78.0 Asymptomatic menopausal state; R92.8 Other abnormal and inconclusive findings on diagnostic imaging of breast; M85.88 Other specified disorders of bone density and structure, other site; M85.852 Other specified disorders of bone density and structure, left thigh; M85.851 Other specified disorders of bone density and structure, right thigh
CPT/HCPCS: 77063; 77067; 77080

== ENCOUNTER 2023-09-14 12:23 | Outpatient (CLI) | payer MEDICARE, OTHER, SELFPAY ==
--- NOTE | ~2023-09-14 | MMUS_ITS ---
EXAMINATION: MM diagnostic romeo RT w shanti, US breast RT limited HISTORY: Follow-up right breast asymmetry TECHNIQUE: Additional 3-D tomosynthesis images of the right breast were performed and synthetic 2-D i mages were generated. CAD analysis was submitted and interpreted. High resolution Limited right breas t ultrasound was performed. COMPARISON: Comparison to multiple prior studies sequentially, with oldest reviewed study dated 05/16. BREAST PARENCHYMAL COMPOSITION: Dense: The breasts are heterogeneously dense, which may obscure small masses FINDINGS: MAMMOGRAPHIC FINDINGS: Focal periareolar asymmetry of the right breast compresses with spot compression and mediolateral vie ws, consistent with either prominent duct or superimposed fibroglandular content. ULTRASOUND: Limited right breast ultrasound: There is mildly prominent ducts in the periareolar location. No disc rete solid or cystic mass. No suspicious sonographic abnormalities to suggest malignancy. IMPRESSION: 1. No evidence for malignancy in the right breast. 2. Routine yearly screening mammogram and regular clinical breast examination are recommended. BI-RADS Category 1: Negative Reviewed, dictated and finalized at location A. [employer] SPECIALIST IMPRESSION: 1. No evidence for malignancy in the right breast. 2. Routine yearly screening mammogram and regular clinical breast examination a re recommended. BI-RADS Category 1: Negative
== END 2023-09-14 12:24 | disposition home or self-care (01) ==
LOC: ANHIMG 12:24
PROVIDERS: PCP Family Medicine; Visit Provider Obstetrics & Gynecology
DX: R92.8 Other abnormal and inconclusive findings on diagnostic imaging of breast (principal)
CPT/HCPCS: 76642; 77061; 77062; 77065; 77066; G0279

== ENCOUNTER 2023-09-17 08:39 | Outpatient (CLI) | payer MEDICARE, OTHER, SELFPAY ==
[2023-09-17 09:21] LABS: Alanine Aminotransferase 16 U/L (6-35); Albumin Level 4.3 g/dL (3.5-5.1); Alkaline Phosphatase 96 U/L (38-126); Anion Gap 8 mmol/L (8-16); Aspartate Amino Transferase 22 U/L (14-36); Bilirubin,Total 0.7 mg/dL (0.2-1.3); Blood Urea Nitrogen 11 mg/dL (7-17); Calcium 9.4 mg/dL (8.4-10.2); Carbon Dioxide 25 mmol/L (22-30); Chloride 100 mmol/L (98-107); Estimated Glomerular Filt Rate > 60; Glucose 98 mg/dL (65-110); Potassium 3.7 mmol/L (3.4-5.0); Sodium 133 mmol/L (137-145)
== END 2023-09-17 08:40 | disposition home or self-care (01) ==
PROVIDERS: PCP Family Medicine; Visit Provider Physician Assistant
DX: I10 Essential (primary) hypertension (principal)
CPT/HCPCS: 36415; 80053

== ENCOUNTER 2023-11-29 12:18 | Outpatient (CLI) | payer MEDICARE, OTHER, SELFPAY ==
--- NOTE | ~2023-11-29 | XR_ITS ---
XR hip LT min 2V DATE: 11/29/2023 13:52 INDICATION: Chronic left hip pain TECHNIQUE: AP and lateral views COMPARISON: None FINDINGS: There is severe left hip joint space narrowing and patchy sclerosis and cystic change in th e acetabulum and femoral head, consistent with severe coronary left hip osteoarthritis. No fracture or dislocation or bone destruction is evident. Normal alignment of the pubic symphysis and left sacroiliac joint. IMPRESSION: Severe left hip primary osteoarthritis Reviewed, dictated and finalized at location B.
--- NOTE | ~2023-11-29 | US_ITS ---
EXAMINATION: US venous doppler [facility] DATE: 11/29/2023 13:07 INDICATION: Left lower limb pain and swelling TECHNIQUE: Grayscale ultrasound images without and with compression and Doppler ultrasound images of the bilateral lower extremity veins were obtained. COMPARISON: None. FINDINGS: The visualized portions of right common femoral vein, profunda (deep) femoral vein, femoral vein, pop liteal vein, posterior tibial veins, peroneal veins, gastrocnemius vein and greater saphenous vein ou tflow are patent. Noncompressible occlusive appearing thrombus throughout the left femoral vein, popliteal vein, gastro cnemius vein, peroneal veins and posterior tibial veins. There is nonocclusive thrombus within the pa rtially compressible left lesser saphenous vein which demonstrates reversed flow. The visualized port ions of left common femoral vein, profunda femoral vein and greater saphenous vein outflow are patent . IMPRESSION: 1. Extensive above and [id number] deep venous thrombosis in the left lower limb extending from t he peroneal and posterior tibial veins at the calf proximally to the cephalad most left superficial f emoral vein. 2. No deep venous necrosis in the right lower limb. Reviewed, dictated and finalized at location A. IMPRESSION: 1. Extensive above and [id number] deep venous thrombosis in the left lower limb extending from the peroneal and posterior tibial veins at the calf proxim ally to the cephalad most left superficial femoral vein. 2. No deep venous necrosis in the right lower limb.
--- NOTE | ~2023-11-29 | CT_ITS ---
EXAMINATION: CTA chest PE protocol DATE: 11/29/2023 15:08 INDICATION: Shortness of breath. TECHNIQUE: Computed tomography angiography (CTA) of the chest was performed with 100 mL Omnipaque-350 intravenous contrast timed to evaluate the pulmonary arteries. Coronal maximum intensity projection 3D-reconstructions were created by the technologist. Automated exposure control and iterative reconst ruction technique were employed. The dose-length product was 139.33 mGy-cm. COMPARISON: Chest CT 05/09/2021 FINDINGS: There are small bilateral pleural effusions. There is mild atelectasis bilaterally. Cardiom egaly is noted. No pericardial effusion. There are pulmonary emboli in right middle lobe, left lower lobe, and right upper lobe. There are changes of recent hiatal hernia repair with edema in the buckler and lacer ior mediastinum. There is severe lower thoracic spondylosis. IMPRESSION: 1. Bilateral pulmonary emboli. 2. Small pleural effusions. Reviewed, dictated and finalized at location E.
== END 2023-11-29 12:19 | disposition home or self-care (01) ==
PROVIDERS: PCP Family Medicine; Visit Provider Physician Assistant Medical
DX: R06.02 Shortness of breath (principal); M79.89 Other specified soft tissue disorders; M16.12 Unilateral primary osteoarthritis, left hip; I82.409 Acute embolism and thrombosis of unspecified deep veins of unspecified lower extremity; I26.99 Other pulmonary embolism without acute cor pulmonale; J90 Pleural effusion, not elsewhere classified
CPT/HCPCS: 71275; 73502; 93970; Q9967

== ENCOUNTER 2023-11-29 15:48 | Observation (INO) | payer MEDICARE, OTHER, SELFPAY ==
[2023-11-29] VITALS (10 sets, daily range): BP systolic 131–169; BP diastolic 79–96; PULSE 79–93; RESP 14–23; TEMP 36.5–36.9; O2SAT 97–100; BMI 23.8
--- NOTE | 2023-11-29 16:01 | ECG_ITS ---
SEE SCANNED COPY FOR CONFIRMED REPORT MTDD
[2023-11-29 16:17] LABS: Basophils Absolute Auto 0.1 K/mm3 (0.0-0.1); Basophils Percent Auto 0.5 % (0.2-1.2); Eosinophils Absolute Auto 1.5 K/mm3 (0-0.3); Eosinophils Percent Auto 13.5 % (0-4.4); Hemoglobin 14.9 g/dL (12.0-15.0); Immature Granulocyte Absolute 0.16 K/mm3 (0.00-0.031); Immature Granulocyte Percent A 1.4 % (0-0.5); Lymphocytes Absolute Auto 1.76 K/mm3 (0.9-3.2); Lymphocytes Percent Auto 15.5 % (18.3-44.2); Mean Corpuscular HGB Conc 33.1 g/dl (32-36); Mean Corpuscular Hemoglobin 24.8 pg (26-34); Mean Platelet Volume 10.2 fl (7.4-10.4); Monocytes Percent Auto 17.9 % (2.6-8.5); Neutrophils Absolute Auto 5.8 K/mm3 (1.3-6.7); Neutrophils Percent Auto 51.2 % (45.5-73.1); Platelet Count Result 280 k/mm3 (150-375); Red Cell Distribution Width 15.9 % (11.5-14.5); White Blood Count 11.3 K/mm3 (4.5-10.0)
[2023-11-29 16:27] LABS: INR 1.1; Prothrombin Time 14.4 Seconds (11.1-14.7)
[2023-11-29 16:28] LABS: Partial Thromboplastin Time 31.2 Seconds (22.3-36.8)
[2023-11-29 16:38] LABS: Alanine Aminotransferase 34 U/L (6-35); Albumin Level 4.5 g/dL (3.5-5.1); Alkaline Phosphatase 233 U/L (38-126); Anion Gap 12 mmol/L (4-12); Aspartate Amino Transferase 20 U/L (14-36); Bilirubin,Total 1.2 mg/dL (0.2-1.3); Blood Urea Nitrogen 12 mg/dL (7-17); Calcium 9.8 mg/dL (8.4-10.2); Carbon Dioxide 23 mmol/L (22-30); Chloride 95 mmol/L (98-107); Estimated CRCL calculation 82 ml/min; Estimated Glomerular Filt Rate > 60; Glucose 115 mg/dL (65-110); Potassium 3.5 mmol/L (3.4-5.0); Sodium 130 mmol/L (137-145)
[2023-11-29 16:40] LABS: NT Pro B Type Natriuretic Pept 206 pg/mL (19.9-100); Troponin I < 0.012 ng/mL (0.000-0.034)
[2023-11-29] MEDS: HEPARIN SOD/D5W 100 UNITS/ML 25,000 UNITS/250 ML BAG 11 UNITS IV CONT (16:57)
[2023-11-29] MEDS: HEPARIN SOD/D5W 100 UNITS/ML 25,000 UNITS/250 ML BAG 10.98 UNITS IV CONT (16:57)
--- NOTE | 2023-11-29 17:35 | ED.SOB ---
HPI - SOB/Dyspnea General Chief Complaint: Shortness of Breath/Dyspnea Stated Complaint: ABN CTA, doppler Time Seen by Provider: 11/29/23 16:01 History of Present Illness HPI Narrative: This is a 73-year-old female who 6 weeks ago underwent surgical resection of an ovarian cyst, followed by a hiatal hernia repair involving stomach and bowel, sent to the emergency department from her primary care doctor's office for bilateral PEs and a left leg DVT extending the calf to the superficial femoral vein. The patient states in the past 5 days, she has developed worsening dyspnea on exertion, progressing to dyspnea at rest. She denies chest pain, fevers, cough, or loss of consciousness. Related Data Home Medications Medication Instructions Recorded Confirmed cyclosporine 0.05 % eye drops in a 1 drp EACH EYE BID 08/07/19 11/29/23 dropperette (Restasis) Allergies Allergy/AdvReac Type Severity Reaction Status Date / Time Sulfa (Sulfonamide Allergy Intermediate Rash Verified 11/29/23 11:10 Antibiotics) lisinopril AdvReac Intermediate Cough Verified 11/29/23 11:10 milk AdvReac Unknown Gastrointestinal Verified 11/29/23 11:10 Upset Review of Systems Review of Systems: All systems reviewed & are unremarkable except as noted in HPI and below PMFSH Past Medical History Medical History Cataract Colon polyp Essential (primary) hypertension Hiatal hernia s/p repair IFG (impaired fasting glucose) Left leg DVT 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 Rosacea Surgical History Surgical History H/O melanoma excision History of cataract surgery History of tubal ligation Hx of hysterectomy Family History Family History Mother Hypertension Cerebrovascular accident Family history of malignant neoplasm of breast in first degree relative Father Malignant neoplasm of prostate Family history of lung cancer Social History Social History Social History: Smoking packs per day: 1 Smoking cigarettes per day: 20.0 Years smoked: 3 Smoking pack-years: 3.00 Smoking status: Former smoker Tobacco type: cigarettes Smoking end date: 07/16/81 Additional smoking assessment comments: IN COLLEGE FOR A SHORT PERIOD OF TIME Alcohol intake: current Alcohol use details: 2 DRINKS PER MONTH Substance use: never Substance use type: does not use Do You Feel Safe in your Home?: Yes Lack of Transportation: No Lack of Food: Never True Current Housing: I Have Housing Concerned About Future Housing: No Difficulty Paying Gas/Electric Bills: No Difficulty Paying for Meds: No Currently Unemployed: YES Education: Don't Know Difficulty w/ Childcare or Family Care: No Living arrangements: with family Occupation/Education: retired Gender identity (if verbalized by the patient): Female Sexual Orientation (if Verbalized by the Patient): Straight or Heterosexual Spiritual care concerns: No Exam Narrative: GENERAL: Well-developed, well-nourished, and in no acute distress. HEAD: Normocephalic, atraumatic. EYES: PERRLA and EOMI. CHEST: Tachypneic. Clear to auscultation. No respiratory distress. No wheezes rales or rhonchi HEART: Regular rate and rhythm. No murmur heard. Normal peripheral pulses. ABDOMEN: Soft, nontender, nondistended, normal active bowel sounds. EXTREMITIES: Left lower extremity edema, 1+. No noted edema on the right. Normal range of motion. SKIN: Warm, dry, no rash. NEURO: Alert and oriented x3. No focal deficit. Moving all 4 limbs spontaneously PSYCH: Normal mood and affect. Course Course Emergency Course: 17:04 - Previously obtained CTA of the chest showed bilateral multiple subsegmental PEs without CT changes concerning for right heart
--- NOTE | 2023-11-29 17:52 | PC.NURSE ---
heparin was started at 11mls/hr but as it was rounded up from original order of 10.98. Pharmacy cancelled that order and place new order for the 11mls/her.
[2023-11-29 19:42] LABS: Basophils Absolute Auto 0.1 K/mm3 (0.0-0.1); Basophils Percent Auto 0.6 % (0.2-1.2); Eosinophils Absolute Auto 1.6 K/mm3 (0-0.3); Eosinophils Percent Auto 15.4 % (0-4.4); Hematocrit 40.7 % (37.0-47.0); Hemoglobin 13.6 g/dL (12.0-15.0); Lymphocytes Absolute Auto 1.73 K/mm3 (0.9-3.2); Lymphocytes Percent Auto 16.7 % (18.3-44.2); Mean Corpuscular HGB Conc 33.4 g/dl (32-36); Mean Corpuscular Hemoglobin 24.5 pg (26-34); Mean Corpuscular Volume 73.5 fl (80-100); Mean Platelet Volume 10.2 fl (7.4-10.4); Monocytes Absolute Auto 1.9 K/mm3 (0.1-0.6); Neutrophils Percent Auto 48.3 % (45.5-73.1); Platelet Count Result 229 k/mm3 (150-375); Red Blood Count 5.54 M/mm3 (4.2-5.4); White Blood Count 10.4 K/mm3 (4.5-10.0)
[2023-11-29 19:56] LABS: INR 1.2; Prothrombin Time 16.1 Seconds (11.1-14.7)
[2023-11-29 19:57] LABS: Partial Thromboplastin Time 40.1 Seconds (22.3-36.8)
[2023-11-29 20:21] LABS: Troponin I < 0.012 ng/mL (0.000-0.034)
--- NOTE | 2023-11-29 20:53 | ADMGEN ---
This patient, Meeta Blackmon, was admitted to Medical Room 250-01. Patient/family oriented to hospital policies and general routines including ID bracelet, bed and alarms, visiting hours, pain management, procedures, bathroom and other care routines, personal items, smoking policy, room service/diet, and visiting hours. Information on how to activate the Rapid Response Team has been discussed. Patient/Family are encouraged to report perceived risks to care and to ask questions if they do not understand what they are told or what they should do.
--- NOTE | 2023-11-29 21:28 | PM.IMHP ---
H&P: HPI History of Present Illness Date/Time: 11/29/23 21:28 Chief Complaint: calf swelling Narrative: This is a 73-year-old female with past medical history significant for hypertension, patient is status post total hysterectomy with bilateral salpingo oophorectomy, patient is status post her hiatal hernia repair. Presents to the emergency room due to left calf swelling, tenderness, shortness of breath. preliminary workup was significant for extensive deep vein thrombosis of left lower extremity as well as pulmonary embolism. patient has been admitted for further evaluation management and treatment. EXAMINATION: US venous doppler LE DATE: 11/29/2023 13:07 INDICATION: Left lower limb pain and swelling TECHNIQUE: Grayscale ultrasound images without and with compression and Doppler ultrasound images of the bilateral lower extremity veins were obtained. COMPARISON: None. FINDINGS: The visualized portions of right common femoral vein, profunda (deep) femoral vein, femoral vein, popliteal vein, posterior tibial veins, peroneal veins, gastrocnemius vein and greater saphenous vein outflow are patent. Noncompressible occlusive appearing thrombus throughout the left femoral vein, popliteal vein, gastrocnemius vein, peroneal veins and posterior tibial veins. There is nonocclusive thrombus within the partially compressible left lesser saphenous vein which demonstrates reversed flow. The visualized portions of left common femoral vein, profunda femoral vein and greater saphenous vein outflow are patent. IMPRESSION: 1.? Extensive above and [id number] deep venous thrombosis in the left lower limb extending from the peroneal and posterior tibial veins at the calf proximally to the cephalad most left superficial femoral vein. 2. No deep venous necrosis in the right lower limb. EXAMINATION: CTA chest PE protocol DATE: 11/29/2023 15:08 INDICATION: Shortness of breath. TECHNIQUE: Computed tomography angiography (CTA) of the chest was performed with 100 mL Omnipaque-350 intravenous contrast timed to evaluate the pulmonary arteries. Coronal maximum intensity projection 3D-reconstructions were created by the technologist. Automated exposure control and iterative reconstruction technique were employed. The dose-length product was 139.33 mGy-cm. COMPARISON: Chest CT 05/09/2021 FINDINGS: There are small bilateral pleural effusions. There is mild atelectasis bilaterally. Cardiomegaly is noted. No pericardial effusion. There are pulmonary emboli in right middle lobe, left lower lobe, and right upper lobe. There are changes of recent hiatal hernia repair with edema in the posterior mediastinum. There is severe lower thoracic spondylosis. IMPRESSION: 1. Bilateral pulmonary emboli. 2. Small pleural effusions. XR hip LT min 2V DATE: 11/29/2023 13:52 INDICATION: Chronic left hip pain? TECHNIQUE: AP and lateral views? COMPARISON: None? FINDINGS: There is severe left hip joint space narrowing and patchy sclerosis and cystic change in the acetabulum and femoral head, consistent with severe coronary left hip osteoarthritis. No fracture or dislocation or bone destruction is evident. Normal alignment of the pubic symphysis and left sacroiliac joint. IMPRESSION: Severe left hip primary osteoarthritis? Review of Systems Review of Systems: Left calf swelling, shortness of breath PMFSH Past Medical History Medical History Cataract Colon polyp Essential (primary) hypertension Hiatal hernia s/p repair IFG (impaired fasting glucose) Left leg DVT Melanoma in situ Carli's syndrome Rosacea Surgical History Surgical History H/O melanoma excision History of cataract surgery History of tubal ligation Hx of hysterectomy Family History Family History (Reviewed 11/29/23 @ 17:40 by Maikol Hess
[2023-11-29 23:03] LABS: Troponin I < 0.012 ng/mL (0.000-0.034)
[2023-11-29 23:15] LABS: Partial Thromboplastin Time 42.8 Seconds (22.3-36.8)
[2023-11-29] MEDS: HEPARIN SODIUM 5,000 UNITS/ML VIAL 5000 UNITS IV PUSH (23:26)
[2023-11-30] VITALS: PULSE 79
--- NOTE | 2023-11-30 | ECHO_ITS ---
Patient Info Name: Meeta Blackmon Age: 73 years : 1950 Gender: Female Ht: 63 in Wt: 134 lbs BSA: 1.65 m2 HR: 74 bpm BP: 132 / 82 mmHg Technical Quality: Good Exam Date: 11/30/2023 8:24 AM Exam Location: Echo Lab Patient Status: Inpatient Admit Date: 11/29/2023 Staff Ordering Physician: Oscar Vergara MD Traffic Personnel Supervisor: Gabriel Ames RDCS Attending Provider: Mar Edouard MD Referring Physician: Ursula HAMILTON; Exam Type: CA echo dop color flow w con Study Info Indications I26.09 - Other pulmonary embolism with acute cor pulmonale Complete two-dimensional, color flow and Doppler transthoracic echocardiogram is performed with contrast to opacify the left ventricle and to improve the deliniation of the left ventricle endocardial borders. Contrast/Agitated Saline Contrast/Ag. Saline: Definity Amount: 3.00 ml Summary 1. Definity contrast administered improved wall motion interpretation. 2. Left ventricular chamber dimension is normal. 3. Ventricular septum is sigmoid shaped. Mild resting LVOT obstruction with mean gradient of 5 mmHg. This suggests hypertrophic cardiomyopathy. 4. Left ventricular systolic function is hyperdynamic, estimated at >70%. 5. The left ventricular diastolic function is grade I diastolic dysfunction. 6. E/e' 11 is mildly elevated. 7. Left atrial chamber dimension is moderately enlarged. 8. There is mild aortic valve sclerosis. 9. There is mild aortic valve regurgitation. 10. Moderate systolic anterior motion of the mitral valve.. 11. There is trace tricuspid valve regurgitation. 12. No pulmonary hypertension, estimated pulmonary arterial systolic pressure is 31 mmHg. Left Ventricle Definity contrast administered improved wall motion interpretation. E/e' 11 is mildly elevated. Ventricular septum is sigmoid shaped. Mild resting LVOT obstruction with mean gradient of 5 mmHg. This suggests hypertrophic cardiomyopathy. Left ventricular chamber dimension is normal. Left ventricular systolic function is hyperdynamic, estimated at >70%. The left ventricular diastolic function is grade I diastolic dysfunction. Right Ventricle Right ventricular systolic function is normal and with normal TAPSE 2.0 cm. Right ventricular chamber dimension is normal. Left Atria Left atrial chamber dimension is moderately enlarged. Right Atria Right atrial chamber dimension is normal. Aortic Valve The aortic valve is trileaflet. There is mild aortic valve sclerosis. There is no aortic valve stenosis. There is mild aortic valve regurgitation. Pulmonic Valve There is no pulmonic regurgitation. Mitral Valve Moderate systolic anterior motion of the mitral valve.. There is no mitral valve stenosis. There is no mitral valve regurgitation. Tricuspid Valve There is trace tricuspid valve regurgitation. No pulmonary hypertension, estimated pulmonary arterial systolic pressure is 31 mmHg. Pericardium/Pleural There is no pericardial effusion. Inferior Vena Cava Normal inferior vena cava with >50% collapse upon inspiration consistent with normal right atrial pressure, 5 mmHg. Aorta The aortic root size at the sinus of Valsalva is normal. Left Ventricular Outflow Tract Name Value Normal LVOT 2D LVOT Diameter 2.09 cm
[2023-11-30 04:00] VITALS: PULSE 74
[2023-11-30 06:00] VITALS: BP 114/72; PULSE 77; RESP 16; TEMP 36.3; O2SAT 95
[2023-11-30 06:15] LABS: Basophils Absolute Auto 0.1 K/mm3 (0.0-0.1); Basophils Percent Auto 0.7 % (0.2-1.2); Eosinophils Absolute Auto 1.8 K/mm3 (0-0.3); Eosinophils Percent Auto 15.7 % (0-4.4); Hematocrit 42.2 % (37.0-47.0); Hemoglobin 13.6 g/dL (12.0-15.0); Immature Granulocyte Absolute 0.14 K/mm3 (0.00-0.031); Immature Granulocyte Percent A 1.2 % (0-0.5); Lymphocytes Absolute Auto 1.95 K/mm3 (0.9-3.2); Lymphocytes Percent Auto 16.9 % (18.3-44.2); Mean Corpuscular HGB Conc 32.2 g/dl (32-36); Mean Corpuscular Hemoglobin 24.2 pg (26-34); Mean Corpuscular Volume 75.2 fl (80-100); Mean Platelet Volume 10.5 fl (7.4-10.4); Monocytes Percent Auto 17.6 % (2.6-8.5); Neutrophils Absolute Auto 5.5 K/mm3 (1.3-6.7); Neutrophils Percent Auto 47.9 % (45.5-73.1); Platelet Count Result 228 k/mm3 (150-375); Red Blood Count 5.61 M/mm3 (4.2-5.4); Red Cell Distribution Width 14.8 % (11.5-14.5); White Blood Count 11.5 K/mm3 (4.5-10.0)
[2023-11-30 06:24] LABS: Partial Thromboplastin Time 65.8 Seconds (22.3-36.8)
[2023-11-30] MEDS: HEPARIN SODIUM 5,000 UNITS/ML VIAL 2500 UNITS IV PUSH (06:30)
[2023-11-30 06:33] LABS: Anion Gap 9 mmol/L (4-12); Blood Urea Nitrogen 7 mg/dL (7-17); Calcium 8.9 mg/dL (8.4-10.2); Carbon Dioxide 20 mmol/L (22-30); Chloride 101 mmol/L (98-107); Estimated CRCL calculation 104 ml/min; Estimated Glomerular Filt Rate > 60; Glucose 111 mg/dL (65-110); Potassium 3.5 mmol/L (3.4-5.0); Sodium 130 mmol/L (137-145)
[2023-11-30 08:00] VITALS: PULSE 73
[2023-11-30] MEDS: PERFLUTREN LIPID MICROSPHERES 1.5 ML VIAL DILUTED TO 10 ML TOTAL VOLUME IV PUSH (09:08)
--- NOTE | 2023-11-30 09:08 | IVDEFINITY ---
Prior to administration of IV Definity the patient was educated on the risks and benefits of the imaging enhancing agent including potential adverse side effects. The patient verbalized understanding. Allergies were verified. No exclusion criteria were identified and at least one of the following inclusion criteria were met: 1) physician request, 2) patient technically difficult to image (per the [place] [employer]chocardi[employer] guidelines of two or more segments not discernable within the apical view), or 3) questionable left ventricular function. ?
--- NOTE | 2023-11-30 09:39 | ECG_ITS ---
SEE SCANNED COPY FOR CONFIRMED REPORT MTDD
[2023-11-30] MEDS: cycloSPORINE 0.4 ML OPHTH SOLUTION 1 DROP EACH EYE (10:17)
[2023-11-30] MEDS: IRBESARTAN 150 MG TABLET 300 MG PO (10:17)
--- NOTE | 2023-11-30 11:29 | PM.DS ---
DS: Admitting Diagnosis Discharge Date 11/30/2023 Admitting Diagnosis Deep vein thrombosis/pulmonary embolisms DS: Discharge Diagnosis Discharge Diagnosis (1) Pulmonary embolism: Qualifiers: Pulmonary embolism type: multiple subsegmental (without acute cor pulmonale) Qualified Code(s): I26.94 - Multiple subsegmental pulmonary emboli without acute cor pulmonale Code(s): I26.99 - Other pulmonary embolism without acute cor pulmonale Status: Acute Assessment and Plan: admit to med tele patient on heparin drip echocardiogram in a.m. (2) Left leg DVT: Qualifiers: Affected thrombotic vein of extremity: femoral Chronicity: acute Qualified Code(s): I82.412 - Acute embolism and thrombosis of left femoral vein Code(s): I82.402 - Acute embolism and thrombosis of unspecified deep veins of left lower extremity Status: Acute Assessment and Plan: on heparin drip (3) Exertional dyspnea: Code(s): R06.09 - Other forms of dyspnea Status: Acute Assessment and Plan: likely secondary to acute pulmonary embolism incentive spirometry (4) Essential (primary) hypertension: Code(s): I10 - Essential (primary) hypertension Status: Chronic Assessment and Plan: resume home meds Plan Disposition: Patient was discharged home with new prescription Eliquis basim recommend patient follow-up with her [facility] for monitoring, evaluation and treatment mild LVOT obstruction. DS: Summary Hospital Course Reason for hospitalization: Deep vein thrombosis/pulmonary embolisms Hospital Course: Patient was a pleasant 73-year-old female who initially presented to the emergency department with worsening shortness of breath as well as left lower leg swelling. Patient reports she had underwent a surgical resection of a ovarian cyst as well as hiatal hernia and bowel resection 6 weeks ago. Patient states she is generally been weak and not ambulating as much postop started to notice some swelling in her left lower extremity they continue to worsen for the past few days as well as shortness of breath. Upon evaluation in the emergency department patient was found to have left lower extremity deep vein thrombosis extending to the calf with a CTA showing pulmonary emboli in the right middle lobe, left lower lobe, and right upper lobe. There was some concern for possible right heart strain patient was admitted to the medical unit and started on a heparin GTT pending an echocardiogram. Patient's EKG showed sinus rhythm an echocardiogram with no right heart strain however of note it did show mild LVOT obstruction non emergent patient was instructed to follow-up with her [facility] outpatient at this time. Patient remained on room air at 98% oxygen saturation and swelling to left lower extremity improved as well as her shortness of breath. Patient was transitioned to oral Eliquis starter pack and she is aware she will need to stay on a blood thinner for 6 months to a year. Patient was ambulatory and discharged home Status at Discharge Functional status at discharge: independent ambulation Overall status at discharge: patient is progressing back to baseline Time Spent with Patient Time attestation: Total time spent providing and/or coordinating discharge services: Time spent: Less than 30 minutes Exam Narrative: Physical Exam: GENERAL: Alert and oriented x 3. No acute distress. EYES: EOMI. No scleral icterus. PERRLA. HEENT: Moist mucous membranes. LUNGS: Diminished bilaterally. No accessory muscle use. CARDIOVASCULAR: Regular rate and rhythm. No murmur. No JVD. S1-S2 ABDOMEN: Soft, mild tenderness and non-distended. No palpable masses. EXTREMITIES: LLE swelling and tenderness SKIN: No rashes or lesions. Skin warm, dry. NEUROLOGIC: No focal neurological deficits. CN II-XII grossly intact PSYCHIATRIC: Appropriate mood and affect. Good judgement a
[2023-11-30] MEDS: APIXABAN 5 MG TABLET 10 MG PO (12:00)
== END 2023-11-30 13:10 | disposition home or self-care (01) ==
LOC: ANHED 17:36 → ANH2MED 17:42
PROVIDERS: Student in an Organized Health Care Education/Training Program; Admitting Provider General Practice; Emergency Provider Preventive Medicine Aerospace Medicine; PCP Family Medicine; Visit Provider General Practice
DX: I26.94 Multiple subsegmental thrombotic pulmonary emboli without acute cor pulmonale (principal); I82.412 Acute embolism and thrombosis of left femoral vein; R06.09 Other forms of dyspnea; I10 Essential (primary) hypertension; K59.81 Ogilvie syndrome; Z87.891 Personal history of nicotine dependence
CPT/HCPCS: 36415; 71275; 73502; 80048; 80053; 83880; 84484; 85025; 85610; 85730; 93005; 93970; 96365; 96366; 96375; 99285; A9270; C8929; G0378; J1644; Q9957; Q9967

== ENCOUNTER 2024-03-18 09:17 | Outpatient (CLI) | payer MEDICARE, OTHER, SELFPAY ==
[2024-03-18 09:57] LABS: Hematocrit 46.5 % (37.0-47.0); Mean Corpuscular HGB Conc 32.3 g/dl (32-36); Mean Corpuscular Hemoglobin 25.3 pg (26-34); Mean Corpuscular Volume 78.4 fl (80-100); Mean Platelet Volume 9.9 fl (7.4-10.4); Platelet Count Result 202 k/mm3 (150-375); Red Blood Count 5.93 M/mm3 (4.2-5.4); Red Cell Distribution Width 15.9 % (11.5-14.5); White Blood Count 7.6 K/mm3 (4.5-10.0)
[2024-03-18 10:05] LABS: Add Urine Microscopic? YES; Appearance Urine Clear (Clear); Bilirubin Urine Negative (Negative); Blood Urine Negative (Negative); Color Urine Yellow (Yellow); Glucose Urine UA Negative (Negative); Ketones Urine Negative (Negative); Leukocyte Esterase Ur Trace LEU/UL (Negative); Nitrate Urine Negative (Negative); Protein Urine Negative (Negative); Specific Grav Ur 1.015 (1.010-1.020); Urobilinogen Urine 0.2 mg/dL (0.2-1.0)
[2024-03-18 10:08] LABS: Bacteria Urine None Seen /hpf; Non Pathogenic Casts 0-2; Squamous Epithelial Cell Urine Occasional /hpf (Few); WBC Urine 0-5 /hpf (0-3)
[2024-03-18 10:14] LABS: Alanine Aminotransferase 17 U/L (6-35); Albumin Level 4.3 g/dL (3.5-5.1); Alkaline Phosphatase 94 U/L (38-126); Anion Gap 9 mmol/L (4-12); Aspartate Amino Transferase 21 U/L (14-36); Bilirubin,Total 0.5 mg/dL (0.2-1.3); Blood Urea Nitrogen 12 mg/dL (7-17); Calcium 9.1 mg/dL (8.4-10.2); Carbon Dioxide 28 mmol/L (22-30); Chloride 99 mmol/L (98-107); Cholesterol 123 mg/dL (0-200); Estimated Glomerular Filt Rate > 60; Glucose 92 mg/dL (65-110); HDL Direct 57 mg/dL; Potassium 3.9 mmol/L (3.4-5.0); Sodium 136 mmol/L (137-145); Triglycerides 55 mg/dL (<150)
[2024-03-18 10:24] LABS: LDL Cholesterol Direct 53 mg/dL
== END 2024-03-18 09:18 | disposition home or self-care (01) ==
LOC: ANHLAB 09:17
PROVIDERS: PCP Family Medicine; Visit Provider Physician Assistant Medical
DX: I10 Essential (primary) hypertension (principal); K44.9 Diaphragmatic hernia without obstruction or gangrene; R31.9 Hematuria, unspecified
CPT/HCPCS: 36415; 80053; 80061; 81001; 82607; 82746; 84443; 85027

== ENCOUNTER 2024-06-05 14:03 | Outpatient (CLI) | payer MEDICARE, OTHER, SELFPAY ==
--- NOTE | ~2024-06-05 | US_ITS ---
EXAMINATION: US venous doppler [facility] DATE: 06/05/2024 14:37 INDICATION: History of DVT TECHNIQUE: Grayscale ultrasound images without and with compression and Doppler ultrasound images of the left lower extremity veins were obtained. COMPARISON: 11/29/2023 FINDINGS: The visualized portions of left common femoral vein, profunda femoral vein and greater saphenous vein outflow are patent. Redemonstration of noncompressibility and absence of flow within the left superficial femoral vein, p opliteal vein, posterior tibial vein and peroneal vein IMPRESSION: 1. Persistent DVT within the left lower extremity, as detailed above. Reviewed, dictated and finalized at location A. TRICAL DESIGNER
== END 2024-06-05 14:04 | disposition home or self-care (01) ==
PROVIDERS: PCP Family Medicine; Visit Provider Physician Assistant Medical
DX: I82.402 Acute embolism and thrombosis of unspecified deep veins of left lower extremity (principal)
CPT/HCPCS: 93971

== ENCOUNTER 2024-09-12 10:21 | Outpatient (CLI) | payer MEDICARE, OTHER, SELFPAY | END 2024-09-12 10:22 | disposition home or self-care (01) | LOC: MICIMG 10:22 | PROVIDERS: PCP Family Medicine; Visit Provider Obstetrics & Gynecology | DX: Z12.31 Encounter for screening mammogram for malignant neoplasm of breast (principal) | CPT/HCPCS: 77063; 77067 ==

== ENCOUNTER 2024-12-05 09:13 | Outpatient (CLI) | payer MEDICARE, OTHER, SELFPAY ==
--- OUTSIDE RECORDS SUMMARY | 2024-12-05 09:16 | XMS_ITS | Clinical Summary ---
Author Organization [facility] Address [address] [place] [address] Care Team Providers Care Senior Art Director Name Role Phone Dar Quevedo MD Primary Care Provider Allergies Active Allergy Reactions Criticality Noted Date Comments Lisinopril Cough Low 01/23/2017 Milk Diarrhea,Stomach upset Low Sulfa (Sulfonamide Antibiotics) Hives High 04/11/2021 Medications RESTASIS MULTIDOSE 0.05 % dropsIndications:K eratoconjunctiviti s Sicca Administer 2 drops into both eyes 2 (two) times a day 3 11/06/19 18 Active artificial tears (SYSTANE) 0.3 % gelIndications:Dry Eye Apply 2 drops to both eyes 2 (two) times a day as needed (dry eye) Active oxyCODONE (ROXICODONE) solution 5 mg/5 mLIndications:Pain Take 5 mL (5 mg total) by mouth every 4 (four) hours as needed for pain 120 mL 10/09/19 24 Active ascorbic acid (ascorbic acid with deon hips) 500 mg tablet,chewableInd ications:Vitamin C Deficiency Take 1 tablet/chew tab (500 mg total) by mouth brokerage branch manager before breakfast For 2 weeks after surgery, crush medications, after the 2 weeks may take whole pills 10/09/19 24 Active calcium carbonate (Calcium 500) 1,250 mg (500 mg elemental) chewable tabletIndications: supplement Take 1 tablet (1,250 mg total) by mouth brokerage branch manager before breakfast For 2 weeks after surgery, crush medications, after the 2 weeks may take whole pills 10/09/19 Active cholecalciferol 25 mcg (1,000 unit) tabletIndications: supplement Take 1 tablet (1,000 Units total) by mouth brokerage branch manager before breakfast For 2 weeks after surgery, crush medications, after the 2 weeks may take whole pills 10/09/19 24 Active multivitamin tabletIndications: Vitamin Deficiency Prevention,supplem ent Take 1 tablet by mouth brokerage branch manager before breakfast For 2 weeks after surgery, crush medications, after the 2 weeks may take whole pills 10/09/19 24 026 Active acetaminophen (TYLENOL) 500 mg tabletIndications: Pain Take 1 tablet (500 mg total) by mouth every 6 (six) hours as needed for pain For 2 weeks after surgery, crush medications, after the 2 weeks may take whole pills 10/09/19 24 Active promethazine (PHENERGAN) 25 mg suppository Insert 1 suppository (25 mg total) into the rectum every 6 (six) hours as needed for nausea or vomiting 12 each 2 10/09/19 24 Active ondansetron ODT (ZOFRAN-ODT) 4 mg disintegrating tabletIndications: Prevention of Post-Operative Nausea and Vomiting Take 1 tablet (4 mg total) by mouth every 8 (eight) hours as needed for nausea or vomiting Place under tongue and let dissolve 20 tablet 2 10/09/19 Active cyclobenzaprine (FLEXERIL) 10 mg tabletIndications: Muscle Spasm Take 1 tablet (10 mg total) by mouth 3 (three) times a day as needed for muscle spasms For 2 weeks after surgery, crush medications, after the 2 weeks may take whole pills 15 tablet 10/09/19 Active polyethylene glycol (MIRALAX) 17 gram/dose bulk powderIndications: constipation Take 17 g by mouth 2 (two) times a day 10/15/19 24 Active bisacodyL (DULCOLAX) 10 mg suppositoryIndicat ions:constipation Insert 1 suppository (10 mg total) into the rectum daily 12 suppository 10/16/19 24 Active lidocaine (ASPERCREME) 4 % adhesive patch,medicated Place 1 patch on the skin daily 10/16/19 Active senna-docusate (PERICOLACE) 8.6-50 mg Take 2 tablets by mouth 2 (two) times a day 120 tablet 10/15/19 24 Active Active Problems Problem Noted Date Diagnosed Date Malignant melanoma of right forearm 11/14/2023 Hypoxia 10/12/2023 Ileus 10/12/2023 Bowel obstruction 10/12/2023 Hiatal hernia 10/08/2023 Hiatal hernia with GERD 08/15/2023 Preop exam for internal medicine 12/13/2017 Assessment & Plan (12/13/2017 9:07 AM CDT): Pt was advised to continue current therapy and medications for chronic conditions as previously as advised. Continue with healthy dietary management as well. Pt offered no additional complaints today in office. Preoperative medical clearance: Pt is medically stable and aware there are risk associated with surgery and anesthesia. He states the surgeon has reviewed these risk in detail with patient, and wishes to proceed with surgery. They are medically cleared for surgery at this time. Pt was instructed to contact the office with absolutely any changes prior to and post surgery. We will see them back here as scheduled, or certainly sooner as needed. Entropion and trichiasis of eyelid 12/13/2017 Assessment & Plan (12/13/2017 9:17 AM CDT): Continue with surgery next week as scheduled along with corticosteroid ophthalmic drops as prescribed. Certainly f/u with us in the interim with any concerns IGT (impaired glucose tolerance) 06/04/2017 Assessment & Plan (06/04/2017 8:35 AM SWEEPING COMPOUND BLENDER): a1c at 5.4 and nl . Chest wall pain 06/04/2017 Assessment & Plan (06/04/2017 8:33 AM SWEEPING COMPOUND BLENDER): Local spot tender and aware of . A joint of the checkt wall.can stay around or go away. Unless changes .woprsens then would m onitor only CARLYLE-inhibitor cough 01/23/2017 Assessment & Plan (01/23/2017 8:57 AM CDT): Cough from med can go I a week to a monothl replces with non carlyle inhipbitor Benign hypertension 08/26/2015 Overview (10/19/2016): BENIGN HYPERTENSION Assessment & Plan (12/13/2017 9:05 AM CDT): Stable. Pt was advised of continuing heart healthy DASH diet, increase exercise as tolerated, and continuing to monitor for any lower leg edema, headaches, changes in vision, or facial flushing. Continue ASA and anti-hypertensives as prescribed. Follow-up as scheduled in 2 weeks for office visit labs prior Assessment & Plan (06/04/2017 8:34 AM SWEEPING COMPOUND BLENDER): Monitor bp monthly and record as borderlibnee here. Cont meds for now as on. Hypertension, Medical treament revolves around weight control, salt management, and meds when necessary. long as weight loss is necessary and you are able to drop weight we can cont to monitor the blood pressure and not add meds. Once the weight is not changing then it becomes nesessary to add meds to be able to reach the goal bp. Assessment & Plan (01/23/2017 8:58 AM CDT): As carlyle cough will stop the Lisinopril and start diovan 160 and take dailyHypertension, Medical treament revolves around weight control, salt management, and meds when necessary. long as weight loss is necessary and you are able to drop weight we can cont to monitor the blood pressure and not add meds. Once the weight is not changing then it becomes nesessary to add meds to be able to reach the goal bp. Rosacea 12/11/2014 Overview (10/19/2016): Acne Rosacea Assessment & Plan (06/04/2017 8:34 AM SWEEPING COMPOUND BLENDER): Daily smidge of topical worsks well. Vitamin D deficiency 11/29/2013 Overview (10/19/2016): VITAMIN D DEFICIENCY NOS Hyperlipidemia 11/29/2013 Overview (10/19/2016): HYPERLIPIDEMIA NEC/NOS Assessment & Plan (12/13/2017 9:06 AM CDT): Cholesterol levels appear to be stable based on last labs in May 2017 with a total of 183, triglycerides of 66, HDL of 74, LDL 96 without any medications at this time. Continue with heart healthy diet, increase exercise as tolerated and follow up with labs in office visit in 2 weeks Assessment & Plan (06/04/2017 8:35 AM SWEEPING COMPOUND BLENDER): ldl at 96 and less then 100 ideal. rebecca changesYour cholesterol in the form of ldl (bad) cholesterol,hdl(good) cholesterol and triglycerides are monitored. The triglycerides respond to reduction/controll of your simple carbs/sugars In such items as sugared soda/sweet tea along with fruit juices(containing natural sugar) even if no added sugar is added. LDL cholesterol is reduced with reducing daily intake of fats and luan. saturated fats. The monosaturated fats like olive oil are not harmful except in the calories they contained. Whole milk cheese needs to be remembered along with whole milk products And limited. Assessment & Plan (01/23/2017 8:58 AM CDT): ldl at 103 and nl less then 130 and ideal les then 100. No changesYour cholesterol in the form of ldl (bad) cholesterol,hdl(good) cholesterol and triglycerides are monitored. The triglycerides respond to reduction/controll of your simple carbs/sugars In such items as sugared soda/sweet tea along with fruit juices(containing natural sugar) even if no added sugar is added. LDL cholesterol is reduced with reducing daily intake of fats and luan. saturated fats. The monosaturated fats like olive oil are not harmful except in the calories they contained. Whole milk cheese needs to be remembered along with whole milk products And limited. Mitral valve disease 11/29/2013 Overview (10/19/2016): MITRAL VALVE DISORDER Resolved Problems Problem Noted Date Diagnosed Date Resolved Date Abnormal glucose tolerance test (GTT) 11/29/2013 06/04/2017 Overview (10/19/2016): IMPAIRED ORAL GLUCSE GENOVEVA Assessment & Plan (01/23/2017 8:59 AM CDT): a1c at 5.7 and 5.6 and less n. Igt is the reduction of tolerance to simple carbs and usually looked at as a pre diabetic state. For most losing weight. Controlling the intake of simple carbs is helpful in improving this. We follow the a1c of most patients to monitor this Gastroesophageal reflux disease 11/29/2013 06/04/2017 Overview (10/19/2016): ESOPHAGEAL REFLUX Immunizations Immunization Administration Dates Next Due Influenza, Split 04/02/2010 Influenza, Trivalent, High D ose, Split, Preservative Free, Intramuscular 04/07/2016,06/11/2015 Influenza, Trivalent, IM (MDV) 4,03/27/2012,04/08/2011,03/31 Influenza, Unspecified 03/29/2017 Pneumococcal Conjugate PCV 13 08/26/2015 Pneumococcal Polysaccharide PPV23 09/11/2016 Tdap 06/17/2008 ZOSTER LIVE 07/29/2013 Surgical History Surgery Date Site/Laterality Comments TUBAL LIGATION tubal ligation FOOT SURGERY foot surgery OTHER SURGICAL HISTORY 2015 cataract surgery: Medical Management OTHER SURGICAL HISTORY melonoma removal HYSTERECTOMY OTHER SURGICAL HISTORY eye lid splitting UPPER GASTROINTESTINAL ENDOSCOPY Medical History Medical History Date Comments Hx Other Medical acne rosacea Hx Other Medical cataract surger y Hypertension Melanoma (HCC) right forearm Ovarian cyst Family History Medical History Relation Name Comments Prostate cancer Brother 2 Cancer -pros zuniga; Other Brother 3 Alive and well; Lung cancer Father Cancer -lung; Hyperlipidemia Mother Hyperlipidemi a; Osteoporosis Mother Osteoporosis; Anesthesia problems Neg Hx Relation Name Status Comments Brother 1 Alive Brother 2 Brother 3 Father Mother Social History Tobacco Use Types Packs/Day Years Used Date Smoking Tobacco: Former Cigarettes 0.5 4 1 983 - 1987 Passive Smoke Exposure: Past Smokeless Tobacco: Never Tobacco Cessation:Counseling Given: Not Answered Alcohol Use Standard Drinks/Week Comments Yes 0 (1 standard drink = 0.6 oz pur e alcohol) [facility] Utilities Answer Date Recorded In the past 12 months has [employer], gas, oil, or water [employer] threatened to shut off services in your home? Patient declined 10/12/2023 Social Connection and Isolation Panel [NHANES] A nswer Date Recorded In a typical week, how many times do you talk on the phone with family, friends, or neighbors? Patient declined 10/12/2023 How often do you get togethe r with friends or relatives? Patient declined 10/12/2023 How often do you attend sikhism or anabaptist serv ices? Patient declined 10/12/2023 Do you belong to any clubs o r organizations such as sikhism groups, unions, fraternal or athletic groups, or school groups? Patient declined 10/12/2023 How often do you attend meet ings of the clubs or organizations you belong to? Patient declined 10/12/2023 Are you , , di vorced, , never , or living with a partner? Patient declined 10/12/2023 AUDIT-C Answer Date Recorded Q1: How often do you have a drink containing alc ohol? 2-4 times a month 10/08/2023 Q2: How many drinks containi ng alcohol do you have on a typical day when you are drinking? 1 or 2 10/08/2023 Q3: How often do you have si x or more drinks on one occasion? Never 10/08/2023 Overall Financial Resource Strain (CARDIA) Answe r Date Recorded How hard is it for you to pa y for the very basics like food, housing, medical care, and heating? Patient declined 10/12/2023 Hunger Vital Sign Answer Date Recorded Within the past 12 months, y ou worried that your food would run out before you got the money to buy more. Patient declined Within the past 12 months, t he food you bought just didn't last and you didn't have money to get more. Patient declined PRAPARE - Transportation Answer Date Re corded In the past 12 months, has l ack of transportation kept you from medical appointments or from getting medications? Patient declined 10/12/2023 In the past 12 months, has l ack of transportation kept you from meetings, work, or from getting things needed for daily living? Patient declined 10/12/2023 Housing Stability Vital Sign Answer Jim e Recorded In the last 12 months, was t here a time when you were not able to pay the mortgage or rent on time? Patient declined 10/12/19 24 In the last 12 months, how many places have you lived? 1 10/12/2023 In the last 12 months, was t here a time when you did not have a steady place to sleep or slept in a chcf (including now)? Patient declined 10/12/2023 Personal Safety Answer Date Recorded Have you ever been in or are you currently in a harmful physical or emotional relationship or is someone making you feel afraid or unsafe? Denies 10/12/2023 Comments No Sex and Gender Information Value Date Recorded Sex Assigned at Not on file Legal Sex Female 9:53 AM SWEEPING COMPOUND BLENDER Gender Identity Not on file Sexual Orientation Not on file Obstetrics History Last Filed Vital Signs Vital Sign Reading Time Taken Comments Blood Pressure 128/84 10/15/2023 11:44 AM CDT Pulse 85 10/15/2023 11:44 AM CDT Temperature 36.1 C (97 F) 10/15/2023 11:44 AM CDT Respiratory Rate 18 10/15/2023 11:44 AM CDT Oxygen Saturation 96% 10/15/2023 11:44 AM CDT Inhaled Oxygen Concentration - - Weight 69.4 kg (153 lb) 10/12/2023 3:45 AM CDT Height 160 cm (5' 2.99 ) 10/09/2023 9:01 AM CDT Body Mass Index 27.11 10/09/2023 9:01 AM CDT Plan of Treatment Health Maintenance Due Date Last Done Comments Hepatitis B Screening 1966 Well Visit 65+ 2013 Osteoporosis Screening-Bone Density Scan 01/26/2017 01/26/2015 Depression Screening 12/13/2018 12/13/2017, 06/04/2017, 01/23/2017 Covid-19 Vaccine (6 - 4-2 5 season) 2024 07/02/2023, 04/17/2022, 05/14/2021, Additional history exists Fall Risk Assessment 10/14/2024 10/15/2023, 12/14/19 18 Influenza Vaccine (Season Ended) 2025 07/02/2023, 04/17/2022, 03/29/2021, Additional history exists DTaP/Tdap/Td Vaccine (3 - Td or Tdap) 03/31/2030 03/31/2020, 06/17/2008 Hepatitis C Screening Completed 08/28/2016 Pneumococcal vaccine 65+ Completed 09/11/2016, 08/16 Breast Cancer Screening-Mammogram Discontinued 03/01/2017, 03/01/2017, 02/28/2016, Additional history exists Zoster Vaccine Completed 08/12/2021, 05/16, 07/29/2013 Colon Cancer Screening-CT Colonography Discontinued 10/12/2023, 03/11/2015, 03/11/2015, Additional history exists Colon Cancer Screening-Colonoscopy Discontinued 10/12/2023, 03/11/2015, 03/11/2015, Additional history exists Colon Cancer Screening-DNA Stool Discontinued 10/12/2023, 03/11/2015, 03/11/2015, Additional history exists Colon Cancer Screening-FIT Discontinued 10/11, 03/11/2015, 03/11/2015, Additional history exists Colon Cancer Screening-FOBT Discontinued 09/14, 03/11/2015, 03/11/2015, Additional history exists Colon Cancer Screening-Sigmoidoscopy Discontinued 10/12/2023, 03/11/2015, 03/11/2015, Additional history exists Colorectal Cancer Screening Discontinued Procedures Procedure Name Priority Date/Time Associated Diagnosis Comments COLONOSCOPY 10/12/2023 1:34 PM CDT MAMMOGRAPHY, TOMOGRAPHY, BILATERAL Routine 03/01/2017 2:21 PM CDT HEPATITIS C SCREENING Routine 08/28/2016 DEXA SCAN Routine 01/26/2015 from Last 3 Months or Most Recently Relevant to Health Maintenance Results * Colonoscopy (10/12/2023 1:34 PM CDT) Anatomical Region Laterality Modality Other Narrative Procedure Note Paresh Ortega MD - 10/12/2023 1:34 PM CDT [facility] Patient Name: Meeta Blackmon Procedure Date: 10/12/2023 1:34 PM Date of : 1950 Admit Type: Inpatient Age: 73 Gender: Female Attending MD: Paresh Ortega M.D. Room: [facility] ENDOSCOPY ADD ON Note Status: Finalized Procedure: Colonoscopy Indications: Therapeutic procedure, Suspected colonicobstruction Referring MD: Zuhair Jones M.D., Shukri Noyola Jr, M.D. Providers: Paresh Ortega M.D., Kalen Lee M.D. Medicines: per ICU team Complications: No immediate complications. Estimated Blood Loss: Estimated blood loss: none. Procedure: Pre-Anesthesia Assessment: - Prior to the procedure, a History and Physicalwas performed, and patient medications, allergies and sensitivities were reviewed. The patient'stolerance of previous anesthesia was reviewed. - Immediately prior to administration ofmedications, the patient was re-assessed for adequacy to receive sedatives. - The risks and benefits of the procedure and the sedation options and risks were discussed with the patient. All questions were answered and informed consent was obtained. The benefits, risks and alternatives of theprocedure and sedation were discussed and informed consentwas obtained. All questions were answered. Please referto the signed informed consent document in the medical record. The [id number] Endoscope was introduced through the anus and advanced to the the cecum, identified by transillumination. Thebenefits, risks and alternatives of the procedure andsedation were discussed and informed consent was obtained.All questions were answered. Please refer to the signed informed consent document in the medical record.The colonoscopy was performed with difficulty due to inadequate bowel prep. The quality of the bowel preparation was inadequate. The bowel preparationused was none. Findings: The perianal and digital rectal examinations were normal. A large amount of liquid solid stool was found from cecum to sigmoid colon, precluding visualization. Lavage of the area was performedusing 5 liters of sterile water, resulting in incomplete clearance with continued poor visualization. The lumen of the colon from cecum to sigmoid colon was grosslydilated. A colonic decompression tube was placed. Impression: - Stool from cecum to sigmoid colon. - Dilated from cecum to sigmoid colon.Decompressed, and decompression tube placed in the cecum. - No specimens collected. Recommendation: - Perform a flat plate abdominal x-ray today. - Serial abdominal exams, monitor stool output and start the patient on twice daily Miralax 17grams. Electronically signed by Paresh Ortega MD Paresh Ortega M.D. 10/12/2023 4:37:12 PM Number of Addenda: 0 Note Initiated On: 10/12/2023 1:34 PM us Paresh Ortega MD ENDOSCOPY PROCEDURES Final Resu lt * MAMMOGRAPHY, TOMOGRAPHY, BILATERAL (03/01/2017 2:21 PM CDT) Anatomical Region Laterality Modality Breast Bilateral Mammography 03/01/2017 2:21 PM CDT Narrative 03/01/2017 2:21 PM CDT SCREENING MAMM W BROCK BI Acc#: [id number] DATE OF EXAM: Mar 01 2017 SCREENING MAMM W BROCK BI HISTORY: Screening TECHNIQUE: Superior-inferior and mediolateral oblique views with tomosynthesis were obtained. COMPARISON:02/24/2015 and 02/28/2016. FINDINGS: There is a mild amount of fibroglandular tissue. The appearance is rather similar to the prior exam. IMPRESSION: ESSENTIALLY NEGATIVE MAMMOGRAM . SUGGEST FOLLOW-UP MAMMOGRAM IN ONE YEAR TO FURTHER STABBING STABILITY. BI-RADS CATEGORY 2. Electronically signed by: Sagar Castano M.D Interpreting Physician: SAGAR CASTANO M.D. Read on: Mar 01 2017 9:21A Transcribed by: [facility] On: Mar 01 2017 9:19A Approved Electronically by: SAGAR CASTANO M.D. on: Mar 01 2017 9:19A Ordering DR: REFERRAL SELF Attending DR: DR GUY BHATIA Attending: DR GUY BHATIA Requesting: SELF, REFERRAL Requesting Fax: -- Attending Attending ID: [id number] Requesting ID: [id number] Report To 1 ID: [id number] Report To 1 Name: DR GUY BHATIA Report To 1 FAX: [phone] NextGen Order #: Procedure Note Miscellaneous, Not In File / Provider, MD Jg - 03/01/2017 SCREENING MAMM W BROCK BI Acc#: [id number] DATE OF EXAM: Mar 01 2017 SCREENING MAMM W BROCK BI HISTORY: Screening TECHNIQUE: Superior-inferior and mediolateral oblique views with tomosynthesis were obtained. COMPARISON:02/24/2015 and 02/28/2016. FINDINGS: There is a mild amount of fibroglandular tissue. The appearance is rather similar to the prior exam. IMPRESSION: ESSENTIALLY NEGATIVE MAMMOGRAM . SUGGEST FOLLOW-UP MAMMOGRAM IN ONE YEAR TO FURTHER STABBING STABILITY. BI-RADS CATEGORY 2. Electronically signed by: Sagar Castano M.D Interpreting Physician: SAGAR CASTANO M.D. Read on: Mar 01 2017 9:21A Transcribed by: [facility] On: Mar 01 2017 9:19A Approved Electronically by: SAGAR CASTANO M.D. on: Mar 01 2017 9:19A Ordering DR: REFERRAL SELF Attending DR: DR GUY BHATIA Attending: DR GUY BHATIA Requesting: SELF, REFERRAL Requesting Fax: -- Attending Attending ID: [id number] Requesting ID: [id number] Report To 1 ID: [id number] Report To 1 Name: DR GUY BHATIA Report To 1 FAX: [phone] NextGen Order #: us Not In File Miscellaneous IMG MAMMO PROCEDURES F inal Result * HM HEPATITIS C SCREENING (08/28/2016) HEP C Normal Comment:NEGATIVE Historical Provider MD HEALTH MAINTENANCE Final Result * DEXA SCAN (01/26/2015) DEXA Scan Abnormal Comment:Osteopenia us Historical Provider HEALTH MAINTENANCE Final Result from Last 3 Months or Most Recently Relevant to Health Maintenance Insurance MEDICARE [facility] MEDICARE [facility] MEDICARE Advance Directives For more information, please contact: [phone] * Full Code (Latest Code Status on File) Date Activated Date Inactivated Comments 10/12/2023 3:48 AM 10/15/2023 7:06 PM * Full Code Date Activated Date Inactivated Comments 10/08/2023 12:51 PM 10/09/2023 8:33 PM Care Teams Senior Art Director Relationship Specialty Start Date End Date Dar Quevedo MD [id number] [facility] [address] [place] [address] PCP - General Family Medicine 07/23/23
--- OUTSIDE RECORDS SUMMARY | 2024-12-05 09:16 | XMS_ITS ---
Author Organization [facility] Address [address] [place] [address] Care Team Providers Care Ophthalmic Medical Technologist Name Role Phone Dar Quevedo MD Primary Care Provider Active Problems Problem Noted Date Diagnosed Date [...] 06/04/2017 Assessment & Plan (06/04/2017 8:35 AM AUDIOPROSTHOLOGIST): a1c at 5.4 and nl . Chest wall pain 06/04/2017 Assessment & Plan (06/04/2017 8:33 AM AUDIOPROSTHOLOGIST): Local spot tender and aware of . [...] prior Assessment & Plan (06/04/2017 8:34 AM AUDIOPROSTHOLOGIST): Monitor bp monthly and record as borderlibnee [...] Rosacea Assessment & Plan (06/04/2017 8:34 AM AUDIOPROSTHOLOGIST): Daily smidge of topical worsks well. Vitamin [...] weeks Assessment & Plan (06/04/2017 8:35 AM AUDIOPROSTHOLOGIST): ldl at 96 and less then 100 [...] disease 11/29/2013 Overview (10/19/2016): MITRAL VALVE DISORDER Current Treatment and Therapy Plans No current plan information found. Past Treatment and Therapy Plans No past plan information found. Lifetime Dose Tracking * Chemical Lifetime Dose Automatic Entry Manual Entr y Fluoro Time 1 minutes 1 minutes 0 minutes Air kerma at the reference point (Ka,r) 11 mGy 1 1 mGy 0 mGy DLP 712 mGycm 712 mGycm 0 mGycm Resolved Problems Problem Noted Date Diagnosed Date [...]
--- OUTSIDE RECORDS SUMMARY | 2024-12-05 09:16 | XMS_ITS | Encounter Summary ---
Author Organization [facility] Address [address] [place] [address] Phone Care Team Providers Care Inside Phone Sales Name Role Phone Celestino Castellanos MD Primary Care Provi milton Dar Quevedo MD Primary Care Provider Encounter Details Date Type Department Care Team (Late st Contact Info) Description 12/13/2017 Orders Only [facility] ProviderJg MD [address] [place] [id number] Social History Tobacco Use Types Packs/Day Years Used Date Smoking Tobacco: Former Smokeless Tobacco: Former Alcohol Use Standard Drinks/Week Comments Yes 0 (1 standard drink = 0.6 oz pur e alcohol) Comments Unknown Sex and Gender Information Value Date Recorded Sex Assigned at Not on file Legal Sex Female 9:53 AM SWIMMING COACH Gender Identity Not on file Sexual Orientation Not on file documented as of this encounter Plan of Treatment Not on file documented as of this encounter Procedures Procedure Name Priority Date/Time Associated Diagnosis Comments DISCHARGE LABORATORY CUMULATIVE REPORT 12/13/2017 12:00 AM CDT documented in this encounter Results * DISCHARGE LABORATORY CUMULATIVE REPORT (12/13/2017 12:00 AM CDT) Narrative 12/13/2017 12:00 AM CDT Ordered by an unspecified provider. Historical Provider LAB BLOOD ORDERABLES Lucila l Result documented in this encounter Visit Diagnoses Not on filedocumented in this encounter Care Teams Inside Phone Sales Relationship Specialty Start Date End Date Celestino Castellanos MD PCP - General 10/13/16 11/13/18 Dar Quevedo MD [address] [place] [address] PCP - General Family Medicine 07/23/23 documented as of this encounter
--- OUTSIDE RECORDS SUMMARY | 2024-12-05 09:17 | XMS_ITS | Referral Summary ---
Author Organization [facility] Address [address] [place] [address] Care Team Providers Care Team Facilitator Name Role Phone Dar Quevedo MD Primary [...] tablet/chew tab (500 mg total) by mouth rn intern before breakfast For 2 weeks after surgery, crush medications, after the 2 weeks may take whole pills 10/09/19 24 Active calcium carbonate (Calcium 500) 1,250 mg (500 mg elemental) chewable tabletIndications: supplement Take 1 tablet (1,250 mg total) by mouth rn intern before breakfast For 2 weeks after surgery, crush medications, after the 2 weeks may take whole pills 10/09/19 Active cholecalciferol 25 mcg (1,000 unit) tabletIndications: supplement Take 1 tablet (1,000 Units total) by mouth rn intern before breakfast For 2 weeks after surgery, crush medications, after the 2 weeks may take whole pills 10/09/19 24 Active multivitamin tabletIndications: Vitamin Deficiency Prevention,supplem ent Take 1 tablet by mouth rn intern before breakfast For 2 weeks after surgery, [...] 06/04/2017 Assessment & Plan (06/04/2017 8:35 AM HEAD COUNSELOR): a1c at 5.4 and nl . Chest wall pain 06/04/2017 Assessment & Plan (06/04/2017 8:33 AM HEAD COUNSELOR): Local spot tender and aware of . [...] prior Assessment & Plan (06/04/2017 8:34 AM HEAD COUNSELOR): Monitor bp monthly and record as borderlibnee [...] Rosacea Assessment & Plan (06/04/2017 8:34 AM HEAD COUNSELOR): Daily smidge of topical worsks well. Vitamin [...] weeks Assessment & Plan (06/04/2017 8:35 AM HEAD COUNSELOR): ldl at 96 and less then 100 [...] PPV23 09/11/2016 Tdap 06/17/2008 ZOSTER LIVE 07/29/2013 Social History Tobacco Use Types Packs/Day Years Used Date Smoking Tobacco: Former Cigarettes 0.5 4 1 983 - 1986 Passive Smoke Exposure: Past Smokeless Tobacco: Never Tobacco Cessation:Counseling Given: Not Answered Alcohol Use Standard Drinks/Week Comments Yes 0 (1 standard drink = 0.6 oz pur e alcohol) [facility] [employer] Answer Date Recorded In the past 12 months has [employer], gas, oil, or water [employer] threatened to shut off services in your home? Patient declined 10/12/2023 Social Connection and Isolation Panel [NHANES] A nswer Date Recorded In a typical week, how many times do you talk on the phone with family, friends, or neighbors? Patient declined 10/12/2023 How often do you get togethe r with friends or relatives? Patient declined 10/12/2023 How often do you attend nondenominational or confucianism serv ices? Patient declined 10/12/2023 Do you belong to any clubs o r organizations such as nondenominational groups, unions, fraternal or athletic groups, or [...] place to sleep or slept in a snf (including now)? Patient declined 10/12/2023 Personal Safety Answer Date Recorded Have you ever been in or are you currently in a harmful physical or emotional relationship or is someone making you feel afraid or unsafe? Denies 10/12/2023 Comments No Sex and Gender Information Value Date Recorded Sex Assigned at Not on file Legal Sex Female 9:53 AM HEAD COUNSELOR Gender Identity Not on file Sexual Orientation Not on file Last Filed Vital Signs Vital Sign Reading [...] 10/09/2023 9:01 AM CDT Plan of Treatment Not on file Procedures Procedure Name Priority Date/Time Associated Diagnosis [...] Female Attending MD: Paresh Ortega M.D. Room: [facility] ENDOSCOPY ADD ON Note Status: Finalized Procedure: [...] consent document in the medical record. The [id number] Endoscope was introduced through the anus and [...] 0 Note Initiated On: 10/12/2023 1:34 PM Paresh Ortega MD ENDOSCOPY PROCEDURES Final Resu lt * MAMMOGRAPHY, TOMOGRAPHY, BILATERAL (03/01/2017 2:21 PM CDT) Anatomical Region Laterality Modality Breast Bilateral Mammography 03/01/2017 2:21 PM CDT Narrative 03/01/2017 2:21 PM CDT SCREENING MAMM W BROCK BI Acc#: [id number] DATE OF EXAM: Mar 01 2017 SCREENING [...] on: Mar 01 2017 9:21A Transcribed by: EHSAN On: Mar 01 2017 9:19A Approved Electronically by: SAGAR CASTANO M.D. on: Mar 01 2017 9:19A Ordering DR: REFERRAL SELF Attending DR: DR GUY BHATIA Attending: DR GUY BHATIA Requesting: SELF, REFERRAL Requesting Fax: -- Attending Attending ID: [id number] Requesting ID: [id number] Report To 1 ID: [id number] Report To 1 Name: DR GUY BHATIA Report To 1 FAX: [phone] NextGen Order #: Procedure Note Miscellaneous, Not In File / Provider, Jg, - 03/01/2017 SCREENING MAMM W BROCK BI Acc#: [id number] DATE OF EXAM: Mar 01 2017 SCREENING [...] on: Mar 01 2017 9:21A Transcribed by: EHSAN On: Mar 01 2017 9:19A Approved Electronically by: SAGAR CASTANO M.D. on: Mar 01 2017 9:19A Ordering DR: REFERRAL SELF Attending DR: DR GUY BHATIA Attending: DR GUY BHATIA Requesting: SELF, REFERRAL Requesting Fax: -- Attending Attending ID: [id number] Requesting ID: [id number] Report To 1 ID: [id number] Report To 1 Name: DR GUY BHATIA Report To 1 FAX: [phone] NextGen Order #: us Not In File Miscellaneous IMG MAMMO PROCEDURES F inal Result * HEPATITIS C SCREENING (08/28/2016) HEP C Normal Comment:NEGATIVE us Historical Provider HEALTH MAINTENANCE Final Result * DEXA SCAN (01/26/2015) DEXA Scan Abnormal Comment:Osteopenia us Historical Provider HEALTH MAINTENANCE Final Result from Last 3 Months or Most Recently Relevant to Health Maintenance Insurance [facility] MEDICARE Advance Directives For more information, please contact: [phone] * Full Code (Latest Code Status on File) Date Activated Date Inactivated Comments 10/12/2023 3:48 AM 10/15/2023 7:06 PM * Full Code Date Activated Date Inactivated Comments 10/08/2023 12:51 PM 10/09/2023 8:33 PM Care Teams Team Facilitator Relationship Specialty Start Date End Date Dar Quevedo MD [address] [facility] [address] [place] [address] PCP - General Family Medicine 07/23/23
--- OUTSIDE RECORDS SUMMARY | 2024-12-05 09:17 | XMS_ITS | Clinical Summary ---
Author Organization [facility] Maggie ji Emil Address [address] [place] [address] Care Team Providers Care Plant Taxonomist Name Role Phone Dar Quevedo MD Primary Care Provider [phone] Allergies Active Allergy Reactions Criticality Noted Date Comments Lisinopril Cough,Other (See Comments) Low 01/23/2017 cough, cough, cough cough Sulfa (Sulfonamide Antibiotics) Hives High 04/11/2021 Reaction: Hives, Medications amLODIPine (NORVASC) 5 mg tablet TAKE 1 TABLET BY MOUTH DAILY 1 Active Irbesartan (AVAPRO) 300 mg tablet TAKE 1 TABLET BY MOUTH DAILY 1 Active irbesartan-hydr oCHLOROthiazide (AVALIDE) 150-12.5 mg tablet Take 1 Tablet by mouth daily. Active cycloSPORINE (RESTASIS) 0.05 % emulsion 1 Drop 2 times daily. Active artificial tears,hypromell ose, (GENTEAL) 0.3 % gel 2 times daily as needed for Discomfort. Active calcium-vitamin D3 (CALTRATE 600+D) 600 mg(1,500mg) -200 unit Tablet Take by mouth daily. Active B-complex + vitamin C (SUPER B-C) Tablet Take 1 Tablet by mouth daily. Active multivitamins-m inerals-lutein (CENTRUM SILVER) Tablet Take 1 Tablet by mouth daily. Active TOBRAMYCIN-DEXA METHASONE OP by Ophthalmic route. Active doxycycline calcium (Vibramycin) 50 mg/5 mL suspension Take 3 Drops by mouth daily. 9 Active Active Problems Problem Noted Date Diagnosed Date Microcytosis 04/11/2021 Elevated red blood cell count 04/11/2021 Lymphadenopathy 04/11/2021 Family History Medical History Relation Name Comments Lung Cancer Father Breast Cancer Mother Relation Name Status Comments Brother 1 Alive Brother 2 Alive Daughter Alive Father Mother Son Alive Social History Tobacco Use Types Packs/Day Years Used Date Smoking Tobacco: Never Smokeless Tobacco: Never Alcohol Use Standard Drinks/Week Comments Not Currently 0 (1 standard drink = 0.6 oz pur e alcohol) Comments Unknown Sex and Gender Information Value Date Recorded Sex Assigned at Not on file Legal Sex Female 2:15 PM CDT Gender Identity Not on file Sexual Orientation Not on file Last Filed Vital Signs Vital Sign Reading Time Taken Comments Blood Pressure 159/87 06/15/2021 10:11 AM CLAMP CARRIER OPERATOR Pulse 76 06/15/2021 10:11 AM CLAMP CARRIER OPERATOR Temperature 36.8 C (98.3 F) 06/15/2021 10:11 AM CLAMP CARRIER OPERATOR Respiratory Rate 18 06/15/2021 10:11 AM CLAMP CARRIER OPERATOR Oxygen Saturation 98% 04/11/2021 1:33 PM CDT Inhaled Oxygen Concentration - - Weight 67.1 kg (148 lb) 06/15/2021 10:11 AM CLAMP CARRIER OPERATOR Height 165.1 cm (5' 5 ) 06/15/2021 10:11 AM CLAMP CARRIER OPERATOR Body Mass Index 24.63 06/15/2021 10:11 AM CLAMP CARRIER OPERATOR Plan of Treatment Health Maintenance Due Date Last Done Comments OSTEOPOROSIS SCREENING 2013 ZOSTER VACCINE (2 of 3) 09/23/2013 07/29/2013 DTAP/TDAP/TD VACCINES (2 - T d or Tdap) 06/17/2018 06/17/2008 RSV VACCINE (60+ or ) (1 - 1-dose 75+ series) 2023 INFLUENZA VACCINE (#1) 2024 6, 06/11/2015, 04/26/2014, Additional history exists PNEUMOCOCCAL VACCINE 50+ YEARS Completed 09/11/2016 , 08/26/2015 Insurance [facility] [place] [id number] MEDICARE PART A AND B Care Teams Plant Taxonomist Relationship Specialty Start Date End Date Dar Quevedo MD [address] [facility] [address] [place] [address] PCP - General Family Practice 04/11/21
--- OUTSIDE RECORDS SUMMARY | 2024-12-05 09:17 | XMS_ITS | Clinical Summary ---
Author Organization [facility] Address [address] [place] [address] Care Team Providers Care Bearing Maker Name Role Phone Dar Quevedo MD Primary Care Provider [phone] Source Comments [facility],non-owned Affiliates and Associated Physician Practices is amultiple site organization consisting of ambulatory clinics and hospital sitesin [place], [place], [place] and [place]. This disclosure is being madepursuant to the Care Everywhere program and may not contain all information available regarding this patient. Last updated 18.[facility] Allergies Active Allergy Reactions Criticality Noted Date Comments Lisinopril Other Low 01/23/2017 cough, cough, cough Milk-Related Compounds Diarrhea Low Reaction: Diarrhea, Sulfa Drugs Skin Reactions Medium 11/29/2015 Reaction: Hives, , Reaction: Hives, , Reaction: Hives, Medications * Be aware that medications may not be up to date on this document. Alwaysverify current medications with the patient. metroNIDAZOLE (METROGEL) 1 % gel 1 %. 06/12/2007 Active cycloSPORINE (RESTASIS MULTIDOSE) 0.05 % ophthalmic suspension 3 06/13/2017 Active acetaminophen (TYLENOL) 500 MG tablet Take 500 mg by mouth every 6 hours as needed for Pain Active vitamin D (CHOLECACIFEROL ) 5000 UNITS capsule Take by mouth once daily Active Multiple Vitamins-Minera ls (CENTRUM SILVER ADULT 50+ PO) Take by mouth once daily Active VIBRAMYCIN 50 MG/5ML syrup Take 3 drops by mouth once daily 0 11/18/2018 Active erythromycin (ROMYCIN) 5 MG/GM ophthalmic ointment APPLY SMALL AMOUNT TO EYE LID THREE TIMES DAILY FOR 10 DAYS STARTING AFTER SURGERY. 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 Immunizations Immunization Administration Dates Next Due INFLUENZA VACCINE 03/16/2018 PNEUMOCOCCAL PPSV23 09/11/2016 Pneumococcal Pcv13 Conj 08/26/2015 Family History Medical History Relation Name Comments Cancer - Lung Father Hypertension Mother Relation Name Status Comments Father Mother Social History Tobacco Use Types Packs/Day Years Used Date Smoking Tobacco: Former Cigarettes Smokeless Tobacco: Never Comments:Quit at 20years old Alcohol Use Standard Drinks/Week Comments Yes 2.5 (1 standard drink = 0.6 oz p ure alcohol) Comments Unknown Sex and Gender Information Value Date Recorded Sex Assigned at Not on file Legal 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 Gender Identity Not on file Sexual Orientation Not on file Last Filed Vital Signs Vital Sign Reading Time Taken Comments Blood Pressure 140/84 01/03/2021 12:39 PM CDT Pulse 66 01/03/2021 12:39 PM CDT Temperature 36.7 C (98.1 F) 01/03/2021 12:39 PM CDT Respiratory Rate 20 01/03/2021 12:39 PM CDT Oxygen Saturation 100% 01/03/2021 12:39 PM CDT Inhaled Oxygen Concentration - - Weight 66.2 kg (146 lb) 01/03/2021 12:39 PM CDT Height 165.1 cm (5' 5 ) 01/03/2021 12:39 PM CDT Body Mass Index 24.3 01/03/2021 12:39 PM CDT Plan of Treatment Health Maintenance Due Date Last Done Comments BONE DENSITY TESTING 1950 MEDICARE AWV 12 MONTHS 1950 HEPATITIS C SCREENING 06/30/1966 DTAP/TDAP/TD VACCINES (1 - Tdap) 1967 ZOSTER VACCINE (1 of 2) 1998 Respiratory Syncytial Virus (RSV) Vaccine Pt: or over 60 yrs (1 - 1-dose 75+ series) 2023 COVID-19 VACCINE (2023- season) 2024 DEPRESSION SCREENING 07/16/2024 INFLUENZA VACCINE (Season Ended) 2025 03/16/2018, 03/29/2017, 04/07/2016, Additional history exists PNEUMOCOCCAL VACCINE 50+ Completed 09/11/2016, 08/16 HEPATITIS B VACCINE Aged Out No longe r eligible based on patient's age to complete this topic HIB VACCINE Aged Out No longer eligi ble based on patient's age to complete this topic HPV VACCINE Aged Out No longer eligi ble based on patient's age to complete this topic MENINGOCOCCAL (Group B) VACCINE SHARED DECISION-MAKING Aged Out No longer eligible based on patient's age to complete this topic MENINGOCOCCAL GROUPS A/C/Y/W VACCINE Aged Out No longer eligible based on patient's age to complete this topic Insurance MEDICARE [facility] MEDICARE [facility] MEDICARE Care Teams Bearing Maker Relationship Specialty Start Date End Date Dar Quevedo MD [address] [place] [address] PCP - General 01/06/19
[2024-12-05 10:12] LABS: Alanine Aminotransferase 18 U/L (6-35); Albumin Level 4.4 g/dL (3.5-5.1); Alkaline Phosphatase 68 U/L (38-126); Anion Gap 9 mmol/L (4-12); Aspartate Amino Transferase 26 U/L (14-36); Blood Urea Nitrogen 10 mg/dL (7-17); Calcium 9.5 mg/dL (8.4-10.2); Carbon Dioxide 23 mmol/L (22-30); Chloride 103 mmol/L (98-107); Estimated Glomerular Filt Rate > 60; Glucose 97 mg/dL (65-110); Potassium 3.9 mmol/L (3.4-5.0); Sodium 135 mmol/L (137-145)
[2024-12-05 10:27] LABS: Hemoglobin A1C 5.2 % (<5.7)
== END 2024-12-05 09:14 | disposition home or self-care (01) ==
PROVIDERS: PCP Family Medicine; Visit Provider Physician Assistant Medical
DX: R73.01 Impaired fasting glucose (principal); I10 Essential (primary) hypertension
CPT/HCPCS: 36415; 80053; 83036

== ENCOUNTER 2025-05-25 08:45 | Outpatient (CLI) | payer MEDICARE, OTHER, SELFPAY ==
--- OUTSIDE RECORDS SUMMARY | 2025-05-25 09:01 | XMS_ITS ---
Author Organization [facility] Address [address] [place] [address] Care Team Providers Care Tool Room Lathe Operator Name Role Phone Dar Quevedo MD Primary [...] 06/04/2017 Assessment & Plan (06/04/2017 8:35 AM LIFE TESTER OUTBOARD MOTORS): a1c at 5.4 and nl . Chest wall pain 06/04/2017 Assessment & Plan (06/04/2017 8:33 AM LIFE TESTER OUTBOARD MOTORS): Local spot tender and aware of . [...] prior Assessment & Plan (06/04/2017 8:34 AM LIFE TESTER OUTBOARD MOTORS): Monitor bp monthly and record as borderlibnee [...] Rosacea Assessment & Plan (06/04/2017 8:34 AM LIFE TESTER OUTBOARD MOTORS): Daily smidge of topical worsks well. Vitamin [...] weeks Assessment & Plan (06/04/2017 8:35 AM LIFE TESTER OUTBOARD MOTORS): ldl at 96 and less then 100 [...]
--- OUTSIDE RECORDS SUMMARY | 2025-05-25 09:01 | XMS_ITS | Clinical Summary ---
Author Organization [facility] Address [address] [place] [address] Care Team Providers Care Shoemaker Custom Name Role Phone Dar Quevedo MD Primary [...] tablet/chew tab (500 mg total) by mouth metal checker before breakfast For 2 weeks after surgery, crush medications, after the 2 weeks may take whole pills 10/09/19 24 Active calcium carbonate (Calcium 500) 1,250 mg (500 mg elemental) chewable tabletIndications: supplement Take 1 tablet (1,250 mg total) by mouth metal checker before breakfast For 2 weeks after surgery, crush medications, after the 2 weeks may take whole pills 10/09/19 Active cholecalciferol 25 mcg (1,000 unit) tabletIndications: supplement Take 1 tablet (1,000 Units total) by mouth metal checker before breakfast For 2 weeks after surgery, crush medications, after the 2 weeks may take whole pills 10/09/19 24 Active multivitamin tabletIndications: Vitamin Deficiency Prevention,supplem ent Take 1 tablet by mouth metal checker before breakfast For 2 weeks after surgery, [...] 06/04/2017 Assessment & Plan (06/04/2017 8:35 AM POTABLE WATER TREATMENT OPERATOR): a1c at 5.4 and nl . Chest wall pain 06/04/2017 Assessment & Plan (06/04/2017 8:33 AM POTABLE WATER TREATMENT OPERATOR): Local spot tender and aware of . [...] prior Assessment & Plan (06/04/2017 8:34 AM POTABLE WATER TREATMENT OPERATOR): Monitor bp monthly and record as borderlibnee [...] Rosacea Assessment & Plan (06/04/2017 8:34 AM POTABLE WATER TREATMENT OPERATOR): Daily smidge of topical worsks well. Vitamin [...] weeks Assessment & Plan (06/04/2017 8:35 AM POTABLE WATER TREATMENT OPERATOR): ldl at 96 and less then 100 [...] drink = 0.6 oz pur e alcohol) [facility] [employer] Answer Date Recorded In the past 12 months has [employer], gas, oil, or water [employer] threatened to shut off services in your home? Patient declined 10/12/2023 Social Connection and Isolation Panel Answer Date Recorded In a typical week, how many times do you talk on the phone with family, friends, or neighbors? Patient declined 10/12/2023 How often do you get togethe r with friends or relatives? Patient declined 10/12/2023 How often do you attend roman catholic or jew serv ices? Patient declined 10/12/2023 Do you belong to any clubs o r organizations such as roman catholic groups, unions, fraternal or athletic groups, or [...] place to sleep or slept in a fci (including now)? Patient declined 10/12/2023 Personal Safety Answer Date Recorded Have you ever been in or are you currently in a harmful physical or emotional relationship or is someone making you feel afraid or unsafe? Denies 10/12/2023 Comments No Sex and Gender Information Value Date Recorded Sex Assigned at Not on file Legal Sex Female 9:53 AM POTABLE WATER TREATMENT OPERATOR Gender Identity Not on file Sexual Orientation [...] 3:45 AM CDT Height 160 cm (5' 2.99) 10/09/2023 9:01 AM CDT Body Mass Index 27.11 10/09/2023 9:01 AM CDT Plan of Treatment Health Maintenance Due Date Last Done Comments Hepatitis B Screening 1966 Well Visit 65+ 2013 Osteoporosis Screening-Bone Density Scan 01/26/2017 01/26/2015 Depression Screening 12/13/2018 12/13/2017, 06/04/2017, 01/23/2017 Fall Risk Assessment 10/14/2024 10/15/2023, 12/14/19 18 Covid-19 Vaccine (6 2024-2 6 season) 2025 07/02/2023, 04/17/2022, 05/14/2021, Additional history exists Influenza Vaccine (#1) 2025 , 04/17/2022, 03/29/2021, Additional history exists DTaP/Tdap/Td Vaccine [...] Female Attending MD: Paresh Ortega M.D. Room: [facility] ENDOSCOPY ADD ON Note Status: Finalized [...] consent document in the medical record. The [id number] Endoscope was introduced through the anus [...] CDT SCREENING MAMM W BROCK BI Acc#: [id number] DATE OF EXAM: Mar 01 2017 SCREENING [...] on: Mar 01 2017 9:21A Transcribed by: [facility] On: Mar 01 2017 9:19A Approved Electronically by: SAGAR CASTANO M.D. on: Mar 01 2017 9:19A Ordering DR: REFERRAL SELF Attending DR: DR GUY BHATIA Attending: DR GUY BHATIA Requesting: SELF, REFERRAL Requesting Fax: -- Attending Attending ID: [id number] Requesting ID: [id number] Report To 1 ID: [id number] Report To 1 Name: DR GUY BHATIA Report To 1 FAX: [phone] NextGen Order #: Procedure Note Miscellaneous, Not In File / Provider, Jg, - 03/01/2017 SCREENING MAMM W BROCK BI Acc#: [id number] DATE OF EXAM: Mar 01 2017 SCREENING [...] on: Mar 01 2017 9:21A Transcribed by: [facility] On: Mar 01 2017 9:19A Approved Electronically by: SAGAR CASTANO M.D. on: Mar 01 2017 9:19A Ordering DR: REFERRAL SELF Attending DR: DR GUY BHATIA Attending: DR GUY BHATIA Requesting: SELF, REFERRAL Requesting Fax: -- Attending Attending ID: [id number] Requesting ID: [id number] Report To 1 ID: [id number] Report To 1 Name: DR GUY BHATIA Report To 1 FAX: [phone] NextGen Order #: us Not In File Miscellaneous IMG MAMMO PROCEDURES F inal Result * HM HEPATITIS C SCREENING (08/28/2016) HEP C Normal Comment:NEGATIVE Historical Provider HEALTH MAINTENANCE Final Result * DEXA SCAN (01/26/2015) DEXA Scan Abnormal Comment:Osteopenia Historical Provider HEALTH MAINTENANCE Final Result from Last 3 Months or Most Recently Relevant to Health Maintenance Insurance MEDICARE [facility] MEDICARE [facility] MEDICARE Advance Directives For more information, please contact: [phone] * Full Code (Latest Code Status on File) Date Activated Date Inactivated Comments 10/12/2023 3:48 AM 10/15/2023 7:06 PM * Full Code Date Activated Date Inactivated Comments 10/08/2023 12:51 PM 10/09/2023 8:33 PM Care Teams Shoemaker Custom Relationship Specialty Start Date End Date Dar Quevedo MD [address] [facility] [address] [place] [address] PCP - General Family Medicine 07/23/23
--- OUTSIDE RECORDS SUMMARY | 2025-05-25 09:01 | XMS_ITS | Encounter Summary ---
Author Organization [facility] Address [address] [place] [address] Phone Care Team Providers Care Harmonica Maker Name Role Phone Celestino Castellanos MD Primary Care Provi milton Dar Quevedo MD Primary Care Provider Encounter Details Date Type Department Care Team (Late st Contact Info) Description 12/13/2017 Orders Only [facility] ProviderJg MD [address] [place], [place] [id number] Social History Tobacco Use Types Packs/Day Years Used Date Smoking Tobacco: Former Smokeless Tobacco: Former Alcohol Use Standard Drinks/Week Comments Yes 0 (1 standard drink = 0.6 oz pur e alcohol) Comments Unknown Sex and Gender Information Value Date Recorded Sex Assigned at Not on file Legal Sex Female 9:53 AM VP [employer] Gender Identity Not on file Sexual Orientation Not on file documented as of this encounter Functional Status * In the past year, patient experienced: Question Answer Date of Assessment Author One or more falls in the last year No 2017 8:58 AM CDT Cain Blackmon MA Has trouble stepping up onto a curb No 12/13 8:58 AM CDT Cain Blackmon MA documented as of this encounter Plan of Treatment Not on file documented as of this encounter Procedures Procedure Name Priority Date/Time Associated Diagnosis Comments DISCHARGE LABORATORY CUMULATIVE REPORT 12/13/2017 12:00 AM CDT documented in this encounter Results * DISCHARGE LABORATORY CUMULATIVE REPORT (12/13/2017 12:00 AM CDT) Narrative 12/13/2017 12:00 AM CDT Ordered by an unspecified provider. us Historical Provider LAB BLOOD ORDERABLES Lucila l Result documented in this encounter Visit Diagnoses Not on filedocumented in this encounter Care Teams Harmonica Maker Relationship Specialty Start Date End Date Celestino Castellanos MD PCP - General 10/13/16 11/13/18 Dar Quevedo MD [address] [facility] [address] [place] [address] PCP - General Family Medicine 07/23/23 documented as of this encounter
--- OUTSIDE RECORDS SUMMARY | 2025-05-25 09:01 | XMS_ITS | Clinical Summary ---
Author Organization [facility] ji [facility] Address [address] [place] [address] Care Team Providers Care Cup Setter Lockstitch Name Role Phone Dar Quevedo MD Primary Care Provider [phone] Allergies Active Allergy Reactions Criticality Noted Date [...] Comments Blood Pressure 159/87 06/15/2021 10:11 AM BLOOD TESTER FOWL Pulse 76 06/15/2021 10:11 AM BLOOD TESTER FOWL Temperature 36.8 C (98.3 F) 06/15/2021 10:11 AM BLOOD TESTER FOWL Respiratory Rate 18 06/15/2021 10:11 AM BLOOD TESTER FOWL Oxygen Saturation 98% 04/11/2021 1:33 PM CDT Inhaled Oxygen Concentration - - Weight 67.1 kg (148 lb) 06/15/2021 10:11 AM BLOOD TESTER FOWL Height 165.1 cm (5' 5) 06/15/2021 10:11 AM BLOOD TESTER FOWL Body Mass Index 24.63 06/15/2021 10:11 AM BLOOD TESTER FOWL Plan of Treatment Health Maintenance Due Date Last Done Comments OSTEOPOROSIS SCREENING 2013 ZOSTER VACCINE (2 of 3) 09/23/2013 07/29/2013 DTAP/TDAP/TD VACCINES (2 - T d or Tdap) 06/17/2018 06/17/2008 RSV VACCINE (60+ or ) (1 - 1-dose 75+ series) 2023 INFLUENZA VACCINE (#1) 2025 6, 06/11/2015, 04/26/2014, Additional history exists PNEUMOCOCCAL VACCINE 50+ YEARS Completed 09/11/2016 , 08/26/2015 Insurance [facility] [place] [id number] MEDICARE PART A AND B Care Teams Cup Setter Lockstitch Relationship Specialty Start Date End Date Dar Quevedo MD [address] [facility] [address] [place] [address] PCP - General Family Practice 04/11/21
--- OUTSIDE RECORDS SUMMARY | 2025-05-25 09:02 | XMS_ITS | Clinical Summary ---
Author Organization [facility] Address [address] [facility] [place] [address] Care Team Providers Care Metal Drilling Machine Operator Name Role Phone Dar Quevedo MD Primary Care Provider [phone] Source Comments [facility],non-owned Affiliates and Associated Physician Practices is amultiple site organization consisting of ambulatory clinics and hospital sitesin [place], [place]. This disclosure is being madepursuant to the Care Everywhere program and may not contain all information available regarding this patient. 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 Gender Identity Not on file Sexual [...] 12:39 PM CDT Height 165.1 cm (5' 5) 01/03/2021 12:39 PM CDT Body Mass Index 24.3 01/03/2021 12:39 PM CDT Plan of Treatment Health Maintenance Due Date Last Done Comments BONE DENSITY TESTING 1950 MEDICARE AWV 12 MONTHS 1950 HEPATITIS C SCREENING 06/30/1966 DTAP/TDAP/TD VACCINES (1 - Tdap) 1967 ZOSTER VACCINE (1 of 2) 1998 Respiratory Syncytial Virus (RSV) Vaccine Pt: or over 60 yrs (1 - 1-dose 75+ series) 2023 DEPRESSION SCREENING 07/16/2024 COVID-19 VACCINE (2023- season) 2025 INFLUENZA VACCINE (#1) 2025 8, 03/29/2017, 04/07/2016, Additional history exists PNEUMOCOCCAL VACCINE [...] age to complete this topic Insurance MEDICARE [facility] MEDICARE [facility] MEDICARE Care Teams Metal Drilling Machine Operator Relationship Specialty Start Date End Date Dar Quevedo MD [address] [place] [address] PCP - General 01/06/19
[2025-05-25 12:58] LABS: Hematocrit 47.2 % (37.0-47.0); Hemoglobin 14.7 g/dL (12.0-15.0); Mean Corpuscular HGB Conc 31.1 g/dl (32-36); Mean Corpuscular Hemoglobin 25.1 pg (26-34); Mean Corpuscular Volume 80.5 fl (80-100); Platelet Count Result 169 k/mm3 (150-375); Red Blood Count 5.86 M/mm3 (4.2-5.4); White Blood Count 6.1 K/mm3 (4.5-10.0)
[2025-05-25 13:15] LABS: Alanine Aminotransferase 18 U/L (6-35); Albumin Level 4.3 g/dL (3.5-5.1); Alkaline Phosphatase 85 U/L (38-126); Anion Gap 7 mmol/L (4-12); Aspartate Amino Transferase 31 U/L (14-36); Bilirubin,Total 0.7 mg/dL (0.2-1.3); Blood Urea Nitrogen 11 mg/dL (7-17); Calcium 9.8 mg/dL (8.4-10.2); Carbon Dioxide 28 mmol/L (22-30); Chloride 99 mmol/L (98-107); Cholesterol 150 mg/dL (0-200); Estimated Glomerular Filt Rate > 60; Glucose 79 mg/dL (65-110); HDL Direct 66 mg/dL; Potassium 3.9 mmol/L (3.4-5.0); Sodium 134 mmol/L (137-145); Total Protein 7.2 g/dL (6.3-8.2); Triglycerides 73 mg/dL (<150)
[2025-05-25 13:51] LABS: Thyroid Stimulating Hormone 2.000 uIU/mL (0.465-4.680)
== END 2025-05-25 08:46 | disposition home or self-care (01) ==
LOC: ANHGOSHLAB 08:46
PROVIDERS: PCP Family Medicine; Visit Provider Physician Assistant Medical
DX: E78.5 Hyperlipidemia, unspecified (principal); I10 Essential (primary) hypertension; I82.402 Acute embolism and thrombosis of unspecified deep veins of left lower extremity; M85.80 Other specified disorders of bone density and structure, unspecified site
CPT/HCPCS: 36415; 80053; 80061; 84443; 85027